=== PATIENT | male | born 1960 | race American Indian/Alaskan Native ===

== ENCOUNTER 2017-02-19 17:43 | Emergency (ER) | payer OTHER ==
[2017-02-19 17:54] VITALS: BP 151/84
[2017-02-19] MEDS ORDERED: FUL-GLO OP ONE (19:47)
[2017-02-19] MEDS ORDERED: TORADOL IM ONE (19:47)
[2017-02-19] MEDS ORDERED: TETRACAINE 0.5% OS STA (19:47)
--- NOTE | 2017-02-19 19:47 | Emergency Department Report ---
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 Denies any vision loss. Patient says he got poked in his left eye. Denies any drainage. Denies any nasal congestion, chest pain or shortness of breath. Pain is burning pain and he did not take anything for pain prior to coming to the emergency room. Tetanus vaccine is up-to-date. He does not wear contact lenses and only wear glasses for reading MD chief complaint: eye pain, eye redness, eye injury -: This evening Onset Description: sudden Location: left eye Place: work If Injury: direct trauma Eye Symptoms: burning, redness, pain, foreign body sensation Severity: moderate Severity scale (0 -10): 6 If Pain, Quality: burning Consistency: constant Context: trauma Associated Symptoms: none Treatments Prior to Arrival: none - Related Data Patient Tetanus UTD: Yes Home Medications Medication Instructions Recorded Confirmed Last Taken Aspirin [Adult Low Dose Aspirin EC] 81 mg PO DAILY 02/19/17 02/19/17 02/19/17 AtorvaSTATin [Lipitor] 40 mg PO DAILY 02/19/17 02/19/17 02/18/17 Lisinopril 5 mg PO DAILY 02/19/17 02/19/17 02/19/17 Metoprolol [Lopressor] 25 mg PO BID 02/19/17 02/19/17 02/19/17 glyBURIDE [Glyburide] 1 tab PO BID 02/19/17 02/19/17 02/19/17 Previous Rx's Medication Instructions Recorded Last Taken Type Gentamicin 0.3% Ophth Soln 2 drops OS Q8H #1 bottle 02/19/17 Unknown Rx Ibuprofen [Motrin] 600 mg PO Q8H PRN #21 tablet 02/19/17 Unknown Rx Allergies Allergy/AdvReac Type Severity Reaction Status Date / Time acetaminophen [From Percocet] Allergy Itching Verified 02/19/17 17:48 metoprolol Allergy Itching Verified 02/19/17 17:48 oxycodone HCl [From Percocet] Allergy Itching Verified 02/19/17 17:48 ED Review of Systems ROS: Stated complaint: LT EYE PAIN Other details as noted in HPI Comment: All other systems reviewed and negative Constitutional: denies: chills, fever Eyes: eye pain. denies: eye discharge, vision change ENT: denies: ear pain, throat pain, congestion Respiratory: no symptoms reported Cardiovascular: denies: chest pain, palpitations, edema, syncope Gastrointestinal: denies: abdominal pain, nausea, vomiting Musculoskeletal: denies: back pain, arthralgia Skin: denies: rash Neurological: denies: headache ED Past Medical Hx - Past Medical History Previous Medical History?: Yes Hx Diabetes: Yes Additional medical history: high cholesterol - Surgical History Past Surgical History?: Yes Hx Open Heart Surgery: Yes - Family History Family history: diabetes, hypertension - Social History Smoking Status: Never Smoker Substance Use Type: Prescribed - Medications Home Medications: Home Medications Medication Instructions Recorded Confirmed Last Taken Type Aspirin [Adult Low Dose Aspirin EC] 81 mg PO DAILY 02/19/17 02/19/17 02/19/17 History AtorvaSTATin [Lipitor] 40 mg PO DAILY 02/19/17 02/19/17 02/18/17 History Gentamicin 0.3% Ophth Soln 2 drops OS Q8H #1 bottle 02/19/17 Unknown Rx Ibuprofen [Motrin] 600 mg PO Q8H PRN #21 tablet 02/19/17 Unknown Rx Lisinopril 5 mg PO DAILY 02/19/17 02/19/17 02/19/17 History Metoprolol [Lopressor] 25 mg PO BID 02/19/17 02/19/17 02/19/17 History glyBURIDE [Glyburide] 1 tab PO BID 02/19/17 02/19/17 02/19/17 History ED Physical Exam - General Limitations: No Limitations General appearance: alert, in no apparent distress - Head Head exam: Present: atraumatic, normocephalic, normal inspection - Eye Eye exam: Present: PERRL, EOMI. Absent: scleral icterus, conjunctival injection , nystagmus, periorbital swelling, periorbital tenderness Pupils: Present: normal accommodation - Expanded Eye Exam Expanded Eyelids: Normal Inspection: Right (Normal bilaterally) Pupils: Regular, Round: Bilateral Sclera/Conjunctival: Normal Inspection: Bilateral, Exudate: Left (tearing) Anterior chamber: Normal Inspection: Bilateral Visual acuity (R) = 20/: 20 (20/20 both eyes) Visual acuity (L) = 20/: 50 With correction: No - ENT ENT exam: Present: normal exam, normal orophraynx, mucous membranes moist, TM's normal bilaterally, normal external ear exam - Neck Neck exam: Present: normal inspection, full ROM. Absent: tenderness, meningismus, lymphadenopathy - Respiratory Respiratory exam: Present: normal lung sounds bilaterally. Absent: respiratory distress, chest wall tenderness - Cardiovascular Cardiovascular Exam: Present: regular rate, normal rhythm, normal heart sounds - Extremities Exam Extremities exam: Present: normal inspection, full ROM, normal capillary refill. Absent: tenderness, pedal edema, joint swelling - Neurological Exam Neurological exam: Present: alert, oriented X3, normal gait, reflexes normal. Absent: motor sensory deficit - Psychiatric Psychiatric exam: Present: normal affect, normal mood - Skin Skin exam: Present: warm, dry, intact, normal color. Absent: rash ED Course Vital Signs 02/19/17 17:50 Temperature 97.8 F Pulse Rate 67 Respiratory 18 Rate Blood Pressure 151/84 O2 Sat by Pulse 100 Oximetry - Reevaluation(s) Reevaluation #1: 02/19/17 20:14 Patient given Toradol 60 mg IM for left eye pain. With some testing - Procedure Description Procedures done: Left eye examine under Restrepo lamp: 2 drops of tetracaine eyedrop instilled and left eye, followed by fluorescein staining and left eye examined under slit-lamp and reveals left corneal abrasion. Patient tetanus shot is up-to-date pain relief with tetracaine eyedrop. He tolerated procedure well. I flushed with normal saline.. ED Medical Decision Making - Medical Decision Making ED course: I discussed the patient that he has abrasion on his left cornea and he'll need to place antibiotic will drops in eyes 3 times a day for 7 days and to follow-up with ophthalmology in 2 days. See procedure note for eye exam. Patient voiced understanding of discharge instruction. He received Toradol 60 mg IM for pain while in emergency room. Discharged home with prescription for gentamicin ophthalmic and Motrin. Critical care attestation.: If time is entered above; I have spent that time in minutes in the direct care of this critically ill patient, excluding procedure time. ED Disposition Clinical Impression: Left eye injury Qualifiers: Encounter type: initial encounter Qualified Code(s): S05.92XA - Unspecified injury of left eye and orbit, initial encounter Corneal abrasion, left Qualifiers: Encounter type: initial encounter Qualified Code(s): S05.02XA - Injury of conjunctiva and corneal abrasion without foreign body, left eye, initial encounter Disposition: DISCHARGED TO HOME OR SELFCARE Is pt being admited?: No Does the pt Need Aspirin: No Condition: Stable Instructions: Corneal Abrasion (ED) Prescriptions: Gentamicin 0.3% Ophth Soln 2 drops OS Q8H #1 bottle Ibuprofen [Motrin] 600 mg PO Q8H PRN #21 tablet PRN Reason: Pain Referrals: LORIE COONEY MD [Staff Physician] - 02/21/17 Forms: Accompanied Note, Work/School Release Form(ED)
== END 2017-02-19 20:44 | disposition home or self-care (01) ==
LOC: ED 17:43
DX: S05.02XA Injury of conjunctiva and corneal abrasion without foreign body, left eye, initial encounter (principal); S05.92XA Unspecified injury of left eye and orbit, initial encounter; E11.9 Type 2 diabetes mellitus without complications; E78.00 Pure hypercholesterolemia, unspecified; X58.XXXA Exposure to other specified factors, initial encounter; Y93.9 Activity, unspecified; Y92.9 Unspecified place or not applicable; Y99.9 Unspecified external cause status
CPT/HCPCS: 96372; 99282; J1885

== ENCOUNTER 2017-11-10 10:02 | Inpatient (IN) | payer OTHER ==
[2017-11-10] MEDS ORDERED: SUBLIMAZE IV ONE (11:09)
[2017-11-10] MEDS ORDERED: ZOFRAN IV ONE (11:09)
--- NOTE | 2017-11-10 11:15 | Emergency Department Report ---
HPI - General Chief Complaint: Abdominal Pain Time Seen by Provider: 11/10/17 11:02 - HPI HPI: Room 25 The patient is a 57-year-old male presenting with chief complaint of abdominal pain. Patient states his epigastric abdominal pain radiating to his back intermittently for the past 4 days. Patient describes pain as sharp in nature. Patient admits to nausea and vomiting. Patient denies diarrhea, dysuria or hematuria. Patient states he may have had a subjective fever yesterday. The patient gives his pain a score of 10/10 Location: Abdomen, back Duration: 4 days Quality: Sharp Severity: 10/10 Modifying factors: [see above] Context: [see above] Mode of transportation: [not driving] ED Past Medical Hx - Past Medical History Hx Diabetes: Yes Additional medical history: high cholesterol - Surgical History Hx Open Heart Surgery: Yes (2011) - Family History Family history: no significant - Social History Smoking Status: Never Smoker Substance Use Type: None - Medications Home Medications: Home Medications Medication Instructions Recorded Confirmed Last Taken Type Aspirin [Adult Low Dose Aspirin EC] 81 mg PO DAILY 02/19/17 02/19/17 02/19/17 History AtorvaSTATin [Lipitor] 40 mg PO DAILY 02/19/17 02/19/17 02/18/17 History Gentamicin 0.3% Ophth Soln 2 drops OS Q8H #1 bottle 02/19/17 Unknown Rx Ibuprofen [Motrin] 600 mg PO Q8H PRN #21 tablet 02/19/17 Unknown Rx Lisinopril 5 mg PO DAILY 02/19/17 02/19/17 02/19/17 History Metoprolol [Lopressor] 25 mg PO BID 02/19/17 02/19/17 02/19/17 History glyBURIDE [Glyburide] 1 tab PO BID 02/19/17 02/19/17 02/19/17 History ED Review of Systems ROS: Stated complaint: ABD/BACK PAIN Other details as noted in HPI Constitutional: fever (subjective) Gastrointestinal: abdominal pain, nausea, vomiting. denies: diarrhea Genitourinary: denies: dysuria, hematuria Musculoskeletal: back pain Physical Exam - Physical Exam Vital Signs: Vital Signs 11/10/17 10:41 Temperature 98.2 F Pulse Rate 77 Respiratory 18 Rate Blood Pressure 140/82 O2 Sat by Pulse 98 Oximetry Physical Exam: GENERAL: The patient is well-developed well-nourished male lying on stretcher moaning in pain with intermittent grimaces. [] HEENT: Normocephalic. Atraumatic. Extraocular motions are intact. Patient has moist mucous membranes. NECK: Supple. Trachea midline CHEST/LUNGS: Clear to auscultation. There is no respiratory distress noted. HEART/CARDIOVASCULAR: Regular. There is no tachycardia. There is no gallop rub or murmur. ABDOMEN: The patient has mild tenderness to palpation in the epigastric region. There is no tenderness to palpation in the rest of the abdomen. Patient has normal bowel sounds. There is no abdominal distention. SKIN: There is no rash. There is no edema. There is no diaphoresis. NEURO: The patient is awake, alert, and oriented. The patient is cooperative. The patient has normal speech MUSCULOSKELETAL: There is slight left CVA tenderness. There is no evidence of acute injury. ED Course Vital Signs 11/10/17 10:41 Temperature 98.2 F Pulse Rate 77 Respiratory 18 Rate Blood Pressure 140/82 O2 Sat by Pulse 98 Oximetry ED Medical Decision Making - Lab Data Result diagrams: 11/10/17 11:08 11/10/17 11:08 Laboratory Tests 11/10/17 11/10/17 11/10/17 11:08 11:08 11:55 WBC 11.3 H RBC 6.68 H Hgb 13.2 Hct 43.0 MCV 64 L MCH 20 L MCHC 31 L RDW 16.0 H Plt Count 198 Lymph % (Auto) 23.8 [place] % (Auto) 8.0 H Eos % (Auto) 1.8 Baso % (Auto) 0.6 Lymph # 2.7 [place] # 0.9 H Eos # 0.2 Baso # 0.1 Seg Neutrophils % 65.8 Seg Neutrophils # 7.4 Sodium 144 Potassium 3.9 Chloride 102.6 Carbon Dioxide 26 Anion Gap 19 BUN 6 L Creatinine 0.7 L Estimated GFR > 60 BUN/Creatinine Ratio 9 Glucose 155 H Calcium 9.5 Total Bilirubin 7.20 H AST 122 H ALT 237 H Alkaline Phosphatase 245 H Total Creatine Kinase 83 CK-MB (CK-2) 1.3 CK-MB (CK-2) Rel Index 1.5 Troponin T < 0.010 Total Protein 7.9 Albumin 4.5 Albumin/Globulin Ratio 1.3 Lipase 564 H Urine Color Rachael Urine Turbidity Clear Urine pH 5.0 Ur Specific [place] 1.009 Urine Protein 30 mg/dl Urine Glucose (UA) Neg Urine Ketones Neg Urine Blood Sm Urine Nitrite Neg Urine Bilirubin Neg Urine Urobilinogen 2.0 Ur Leukocyte Esterase Neg Urine WBC (Auto) 1.0 Urine RBC (Auto) 4.0 - Radiology Data Radiology results: pending (right upper quadrant ultrasound), report reviewed ( CT abdomen and pelvis), image reviewed (CT abdomen and pelvis) CT abdomen and pelvis with contrast: Epigastric pain radiating to back. Following administration of IV contrast transverse images are obtained from the lower chest to the ischium. Coronal and sagittal 2-D reformatted images included. There is a 1.9 cm lobulated mass in the left lower lobe. Sternotomy wires are noted. There is a generalized decreased attenuation of the liver. Numerous gallstones are present extending into the neck of the gallbladder. The CBD is 1 cm in diameter but there is no obvious calculus in the CBD. There is however a small calcification in the jejunum which could represent a small calculus. The gallbladder is not otherwise remarkable. There is marked edema around the thickened pancreas and a small amount of fluid identified in the left colic gutter. The pancreatic duct is nondilated. Small bowel is focally dilated in the left mid abdomen near the pancreatic tail. The unopacified bowel and mesentery is not otherwise remarkable. A normal-appearing appendix is present. The retroperitoneal organs as well as the aorta are unremarkable. Images through the pelvis demonstrate rather prominent vas deferens bilaterally. Impressions: 1. Left lower lobe pulmonary mass. This is not described on chest x-ray in 2012. Additional evaluation needed. 2. Hepatic steatosis. 3. Pancreatitis and cholelithiasis. The dilated CBD and suspicious calculus in the proximal jejunum raise suspicion of a recently passed obstructing CBD calculus. Transcribed By: JOANNE Dictated By: PAVEL GONZALEZ MD Electronically Authenticated By: PAVEL GONZALEZ MD Signed Date/Time: 11/10/171335 DD/ 1321 TD/TT: 11/10/171335 - Differential Diagnosis bowel perforation, renal colic, pancreatitis, aortic dissection Critical care attestation.: If time is entered above; I have spent that time in minutes in the direct care of this critically ill patient, excluding procedure time. ED Disposition Clinical Impression: Acute abdominal pain, Biliary acute pancreatitis, Nausea & vomiting Disposition: 09 OP ADMIT IP TO THIS HOSP Is pt being admited?: Yes Does the pt Need Aspirin: No Condition: Fair Referrals: PRIMARY CARE, [Referring] - 3-5 Days Time of Disposition: 14:01 (hospitalist notified (Dr. Fox))
[2017-11-10 11:26] LABS: Basophils # (Auto) 0.1 K/mm3 (0.0-0.1); Basophils % (Auto) 0.6 % (0.0-1.8); Eosinophils # (Auto) 0.2 K/mm3 (0.0-0.4); Eosinophils % (Auto) 1.8 % (0.0-4.3); Lymphocytes # (Auto) 2.7 K/mm3 (1.2-5.4); Lymphocytes % (Auto) 23.8 % (13.4-35.0); Mean Corpuscular HGB Conc 31 % (32-34); Monocytes # (Auto) 0.9 K/mm3 (0.0-0.8); Platelet Count 198 K/mm3 (140-440); Red Blood Count 6.68 M/mm3 (3.65-5.03)
[2017-11-10 11:27] LABS: Hemoglobin 13.2 gm/dl (11.8-15.2); Mean Corpuscular Hemoglobin 20 pg (28-32); Mean Corpuscular Volume 64 fl (84-94)
[2017-11-10 12:00] LABS: Creatine Kinase MB 1.3 ng/mL (0.0-4.0)
[2017-11-10 12:01] LABS: Alanine Aminotransferase 237 units/L (7-56); Albumin 4.5 g/dL (3.9-5); BUN/Creatinine Ratio 9; Blood Urea Nitrogen 6 mg/dL (9-20); Calcium 9.5 mg/dL (8.4-10.2); Hemolysis Index 3
[2017-11-10 12:11] LABS: Bilirubin,Urine NEG (Negative); Blood,Urine SM (Negative); Color,Urine Amber (Yellow); Nitrite,Urine NEG (Negative)
[2017-11-10 12:30] LABS: Lipase 564 units/L (13-60)
[2017-11-10] MEDS ORDERED: BENTYL IM ONE (12:31)
--- NOTE | 2017-11-10 13:53 | Cat Scan Report ---
CT abdomen and pelvis with contrast: Epigastric pain radiating to back. Following administration of IV contrast transverse images are obtained from the lower chest to the ischium. Coronal and sagittal 2-D reformatted images included. There is a 1.9 cm lobulated mass in the left lower lobe. Sternotomy wires are noted. There is a generalized decreased attenuation of the liver. Numerous gallstones are present extending into the neck of the gallbladder. The CBD is 1 cm in diameter but there is no obvious calculus in the CBD. There is however a small calcification in the jejunum which could represent a small calculus. The gallbladder is not otherwise remarkable. There is marked edema around the thickened pancreas and a small amount of fluid identified in the left colic gutter. The pancreatic duct is nondilated. Small bowel is focally dilated in the left mid abdomen near the pancreatic tail. The unopacified bowel and mesentery is not otherwise remarkable. A normal-appearing appendix is present. The retroperitoneal organs as well as the aorta are unremarkable. Images through the pelvis demonstrate rather prominent vas deferens bilaterally. Impressions: 1. Left lower lobe pulmonary mass. This is not described on chest x-ray in 2012. Additional evaluation needed. 2. Hepatic steatosis. 3. Pancreatitis and cholelithiasis. The dilated CBD and suspicious calculus in the proximal jejunum raise suspicion of a recently passed obstructing CBD calculus.
[2017-11-10] MEDS ORDERED: SUBLIMAZE IV PRN (14:00)
[2017-11-10] MEDS ORDERED: MILK OF MAGNESIA PO PRN (14:08)
[2017-11-10] MEDS ORDERED: ZOFRAN IV PRN (14:08)
[2017-11-10] MEDS ORDERED: DULCOLAX PR PRN (14:08)
[2017-11-10] MEDS ORDERED: PROVENTIL IH PRN (14:08)
[2017-11-10] MEDS ORDERED: MORPHINE IV PRN (14:08)
--- NOTE | 2017-11-10 14:35 | Ultrasound Report ---
Limited abdominal ultrasound: The diameter of the pancreas is slightly thickened. The CBD is not dilated. No obvious fluid accumulation appreciated. The visualized margins of do appear relatively sharp. The liver is not optimally visualized but appears to be grossly normal. The gallbladder contains numerous calculi under a centimeter in size with shadowing. The gallbladder wall was not thickened with questionable minimal pericholecystic fluid identified. The CBD diameter is 6.3 mm. No intraluminal echo density noted. The right kidney is echogenically unremarkable and has a length of 10 cm. The transverse diameter of the proximal abdominal aorta is 1.9 cm. Impressions: 1. Cholelithiasis with suspicion of cholecystitis. 2. Thickened pancreas suspicious for possibly representing pancreatitis.
[2017-11-10] MEDS ORDERED: MORPHINE ONE (14:46)
[2017-11-10] MEDS ORDERED: DILAUDID ONE (14:54)
[2017-11-10] MEDS ORDERED: ZESTRIL PO SCH (15:00)
[2017-11-10] MEDS ORDERED: DILAUDID IV PRN (15:00)
[2017-11-10] MEDS ORDERED: PNEUMOVAX 23 IM ONE (15:20)
--- NOTE | 2017-11-10 16:24 | History and Physical Report ---
History of Present Illness Date of admission: 11/10/17 14:08 Chief complaint: My stomach hurts History of present illness: 57 YO Male with DM, HLD, CAD S/P CABG presents to ED for evaluation. Pt states that he has experienced pain in his abdomen for the past 4 days with worsening symptoms over the past 1 day. Pt states that pain is 10/10, sharp, epigastric in location, associated with nausea and multiple episodes of vomiting, worse with meals, and moving, somewhat relieved with rest and not moving. Pt denies Fever, Diarrhea, BRBPR, Dysuria, hematuria, unintentional weight loss, night sweats, dysphagia, odynophagia, productive cough, or recent ill contacts. Pt seen and evaluated in ED and underwent CT that revealed gallstone pancreatitis. Pt admitted to medical floor, and treated with IVF resuscitation, pain control, and bowel rest. Past History Past Medical History: CAD, diabetes, hyperlipidemia, other Past Surgical History: CABG Social history: , lives with family. denies: smoking, alcohol abuse, prescription drug abuse Family history: no significant family history (reviewed) Medications and Allergies Allergies Allergy/AdvReac Type Severity Reaction Status Date / Time acetaminophen [From Percocet] Allergy Itching Verified 02/19/17 17:48 metoprolol Allergy Itching Verified 02/19/17 17:48 oxycodone HCl [From Percocet] Allergy Itching Verified 02/19/17 17:48 Home Medications Medication Instructions Recorded Confirmed Last Taken Type Aspirin [Adult Low Dose Aspirin EC] 81 mg PO DAILY 02/19/17 02/19/17 02/19/17 History AtorvaSTATin [Lipitor] 40 mg PO DAILY 02/19/17 02/19/17 02/18/17 History Gentamicin 0.3% Ophth Soln 2 drops OS Q8H #1 bottle 02/19/17 Unknown Rx Ibuprofen [Motrin] 600 mg PO Q8H PRN #21 tablet 02/19/17 Unknown Rx Lisinopril 5 mg PO DAILY 02/19/17 02/19/17 02/19/17 History Metoprolol [Lopressor] 25 mg PO BID 02/19/17 02/19/17 02/19/17 History glyBURIDE [Glyburide] 1 tab PO BID 02/19/17 02/19/17 02/19/17 History Active Meds: Active Medications Albuterol (Proventil) 2.5 mg IH Q3HRT PRN PRN Reason: Shortness Of Breath Aspirin (Halfprin Ec) 81 mg PO DAILY YASMIN Atorvastatin Calcium (Lipitor) 40 mg PO QHS YASMIN Bisacodyl (Dulcolax) 10 mg VT QDAY PRN PRN Reason: Constipation unrelieved by [facility] [place] Fentanyl (Sublimaze) 100 mcg IV ONCE PRN PRN Reason: Pain Hydromorphone HCl (Dilaudid) 2 mg IV Q4HR PRN PRN Reason: Severe Pain Sodium Chloride (Nacl 0.45% 1000 Ml) 1,000 mls @ 75 mls/hr IV DIRECT YASMIN Ibuprofen (Motrin) 600 mg PO Q8H PRN PRN Reason: Pain Lisinopril (Zestril) 5 mg PO QDAY YASMIN Magnesium Hydroxide (Milk Of Magnesia) 30 ml PO Q4H PRN PRN Reason: Constipation Metoprolol Tartrate (Lopressor) 25 mg PO BID [facility] Ondansetron HCl (Zofran) 4 mg IV Q8H PRN PRN Reason: N/V unrelieved by Reglan Review of Systems Constitutional: no weight loss, no weight gain, no fever, no chills, no sweats, no night sweats Ears, nose, mouth and throat: no ear pain, no ear discharge, no tinnitis, no decreased hearing, no nose pain, no nasal congestion, no nasal discharge Cardiovascular: no chest pain, no orthopnea, no palpitations, no rapid/ irregular heart beat, no edema, no syncope Respiratory: no cough, no cough with sputum, no excessive sputum, no hemoptysis , no shortness of breath Gastrointestinal: abdominal pain, nausea, vomiting, no hematemesis, no coffee ground emesis, no BRBPR, no melena, no hematochezia Genitourinary Male: no dysuria, no hematuria, no flank pain, no discharge, no urinary frequency Rectal: no pain, no incontinence, no bleeding Musculoskeletal: no neck stiffness, no neck pain, no shooting arm pain, no arm numbness/tingling, no low back pain, no shooting leg pain Integumentary: no rash, no pruritis, no redness, no sores, no wounds Neurological: no head injury, no transient paralysis, no paralysis, no weakness , no parathesias, no numbness, no tingling Psychiatric: no anxiety, no memory loss, no change in sleep habits, no sleep disturbances, no insomnia, no hypersomnia, no change in appetite, no change in libido Endocrine: no cold intolerance, no heat intolerance, no polyphagia, no excessive thirst, no polydipsia, no polyuria, no nocturia, no excessive sweating Hematologic/Lymphatic: no easy bruising, no easy bleeding Allergic/Immunologic: no urticaria, no allergic rhinitis, no wheezing Exam - Constitutional Vitals: Temp Pulse Resp BP Pulse Ox 97.9 F 90 25 H 142/92 100 11/10/17 11:31 11/10/17 13:46 11/10/17 13:46 11/10/17 13:46 11/10/17 11:31 General appearance: Present: mild distress - EENT Eyes: Present: PERRL, scleral icterus ENT: hearing intact, clear oral mucosa - Neck Neck: Present: supple, normal ROM - Respiratory Respiratory effort: normal Respiratory: bilateral: CTA - Cardiovascular Heart Sounds: Present: S1 & S2. Absent: rub, click - Extremities Extremities: pulses symmetrical, No edema Peripheral Pulses: within normal limits - Abdominal General gastrointestinal: Present: soft, tender. Absent: hepatomegaly, splenomegaly, mass, hernia Localized gastrointestinal: tender: epigastric periumbilical, guarding: epigastric periumbilical, rebound: epigastric periumbilical Male genitourinary: Present: normal - Integumentary Integumentary: Present: clear, warm, dry, jaundice - Musculoskeletal Musculoskeletal: gait normal, strength equal bilaterally - Psychiatric Psychiatric: appropriate mood/affect, intact judgment & insight - Neurologic Neurologic: CNII-XII intact, moves all extremities Results - Labs CBC & Chem 7: 11/10/17 11:08 11/10/17 11:08 Labs: Abnormal lab results 11/10/17 11/10/17 11/10/17 Range/Units 10:44 11:08 11:08 WBC 11.3 H (4.5-11.0) K/mm3 RBC 6.68 H (3.65-5.03) M/mm3 MCV 64 L (84-94) fl MCH 20 L (28-32) pg MCHC 31 L (32-34) % RDW 16.0 H (13.2-15.2) % [place] % (Auto) 8.0 H (0.0-7.3) % [place] # 0.9 H (0.0-0.8) K/mm3 BUN 6 L (9-20) mg/dL Creatinine 0.7 L (0.8-1.5) mg/dL Glucose 155 H (75-100) mg/dL POC Glucose 158 H (70-105) Total Bilirubin 7.20 H (0.1-1.2) mg/dL AST 122 H (5-40) units/L ALT 237 H (7-56) units/L Alkaline Phosphatase 245 H (35-129) units/L Lipase 564 H (13-60) units/L Assessment and Plan - Patient Problems (1) Mass of left lung Current Visit: Yes Status: Acute Plan to address problem: Incidental findings on CT. Pulmonary consulted for outpatient F/U and possible biopsy, supplemental oxygen, nebs. (2) Acute gallstone pancreatitis Current Visit: Yes Status: Acute Plan to address problem: IVF resuscitation, bowel rest, MRCP, GI consult, NGT to LWS if persistent nausea and vomiting, serial abdominal exam, pain control, (3) Diabetes Current Visit: Yes Status: Acute Plan to address problem: ADA diet, insulin, accu check (4) HLD (hyperlipidemia) Current Visit: Yes Status: Acute Plan to address problem: continue current care, low sholesterol diet, statin therapy when able to tolerate diet. (5) DVT prophylaxis Current Visit: Yes Status: Acute
[2017-11-10] MEDS: ZOSYN/NS 4.5GM/100ML 4.5 GM/100 ML VIAL IV SCH (17:00)
--- NOTE | 2017-11-10 17:01 | Gastroenterology Consultation ---
History of Present Illness - Reason for Consult Consult date: 11/10/17 Gallstones Requesting physician: JYOTHI SEGURA - History of Present Illness The patient is a 57 yo male admitted with acute pancreatitis. He was seen in the [place] ER for similar problems as far back as August, and was dx with gallstones (and ?elevated LFTs per patient). He tried finding a surgeon that took [employer] and was unsuccessful; he has been dealing with intermittent abdominal pain since August. He did see a GI MD (Leonel or Ni - patient not sure) in the last few weeks, and for unclear reasons, he was offered a colonoscopy as workup of the problem; he had some hemorrhoids and "1-2 polyps." He has no emesis or severe pain on liquids today (compared to Friday, when the current symptoms "flared again." A CT and US confirm gallstones and a dilated (on CT only) CBD without filling defect. There is a small calcified stone in the jejunum, and the patient may have passed a small gallstone as his pain and N/V have improved. He has a WBC of 11, but denies fevers or chills, and has a family hx of gallstones in his mother and sister. He does have a hx of CAD with CABG in 2011, but has no exertional CP or SOB. Past History Past Medical History: CAD, diabetes, hyperlipidemia, other Past Surgical History: CABG Social history: , lives with family. denies: smoking, alcohol abuse, prescription drug abuse Family history: no significant family history (reviewed) Medications and Allergies Allergies Allergy/AdvReac Type Severity Reaction Status Date / Time acetaminophen [From Percocet] Allergy Itching Verified 02/19/17 17:48 metoprolol Allergy Itching Verified 02/19/17 17:48 oxycodone HCl [From Percocet] Allergy Itching Verified 02/19/17 17:48 Home Medications Medication Instructions Recorded Confirmed Last Taken Type Aspirin [Adult Low Dose Aspirin EC] 81 mg PO DAILY 02/19/17 02/19/17 02/19/17 History AtorvaSTATin [Lipitor] 40 mg PO DAILY 02/19/17 02/19/17 02/18/17 History Gentamicin 0.3% Ophth Soln 2 drops OS Q8H #1 bottle 02/19/17 Unknown Rx Ibuprofen [Motrin] 600 mg PO Q8H PRN #21 tablet 02/19/17 Unknown Rx Lisinopril 5 mg PO DAILY 02/19/17 02/19/17 02/19/17 History Metoprolol [Lopressor] 25 mg PO BID 02/19/17 02/19/17 02/19/17 History glyBURIDE [Glyburide] 1 tab PO BID 02/19/17 02/19/17 02/19/17 History Active Meds: Active Medications Albuterol (Proventil) 2.5 mg IH Q3HRT PRN PRN Reason: Shortness Of Breath Aspirin (Halfprin Ec) 81 mg PO DAILY YASMIN Atorvastatin Calcium (Lipitor) 40 mg PO QHS YASMIN Bisacodyl (Dulcolax) 10 mg NM QDAY PRN PRN Reason: Constipation unrelieved by MOM Fentanyl (Sublimaze) 100 mcg IV ONCE PRN PRN Reason: Pain Hydromorphone HCl (Dilaudid) 2 mg IV Q4HR PRN PRN Reason: Severe Pain Sodium Chloride (Nacl 0.45% 1000 Ml) 1,000 mls @ 75 mls/hr IV DIRECT YASMIN Piperacillin Sod/Tazobactam Sod (Zosyn/Ns 4.5gm/100ml) 4.5 gm in 100 mls @ 200 mls/hr IV Q8HR YASMIN PRN Reason: Protocol Ibuprofen (Motrin) 600 mg PO Q8H PRN PRN Reason: Pain Lisinopril (Zestril) 5 mg PO QDAY YASMIN Magnesium Hydroxide (Milk Of Magnesia) 30 ml PO Q4H PRN PRN Reason: Constipation Metoprolol Tartrate (Lopressor) 25 mg PO BID YASMIN Ondansetron HCl (Zofran) 4 mg IV Q8H PRN PRN Reason: N/V unrelieved by Reglan I HAVE REVIEWED AND RECONCILED THE MEDICATONS Review of Systems - Review of Systems All systems: negative (as noted in the HPI.) Exam - Constitutional Vital Signs: Temp Pulse Resp BP Pulse Ox 97.9 F 90 25 H 142/92 100 11/10/17 11:31 11/10/17 13:46 11/10/17 13:46 11/10/17 13:46 11/10/17 11:31 General appearance: no acute distress - EENT Eyes: PERRL, EOM intact, scleral icterus ENT: hearing intact, clear oral mucosa, no thrush - Neck Neck: supple, normal ROM - Respiratory Respiratory effort: normal Respiratory: bilateral: CTA - Cardiovascular Rhythm: regular Heart Sounds: Present: S1 & S2 Extremities: no ischemia, No edema - Gastrointestinal General gastrointestinal: Present: soft, non-tender (No [place] or peritoneal signs), non-distended - Integumentary Integumentary: Present: clear, warm, dry - Neurologic Neurological: alert and oriented x3 - Labs CBC & Chem 7: 11/10/17 11:08 11/10/17 11:08 Lab Results: Laboratory Results - last 24 hr 11/10/17 11/10/17 11/10/17 10:44 11:08 11:08 WBC 11.3 H RBC 6.68 H Hgb 13.2 Hct 43.0 MCV 64 L MCH 20 L MCHC 31 L RDW 16.0 H Plt Count 198 Lymph % (Auto) 23.8 [place] % (Auto) 8.0 H Eos % (Auto) 1.8 Baso % (Auto) 0.6 Lymph # 2.7 [place] # 0.9 H Eos # 0.2 Baso # 0.1 Seg Neutrophils % 65.8 Seg Neutrophils # 7.4 Sodium 144 Potassium 3.9 Chloride 102.6 Carbon Dioxide 26 Anion Gap 19 BUN 6 L Creatinine 0.7 L Estimated GFR > 60 BUN/Creatinine Ratio 9 Glucose 155 H POC Glucose 158 H Calcium 9.5 Total Bilirubin 7.20 H AST 122 H ALT 237 H Alkaline Phosphatase 245 H Total Creatine Kinase 83 CK-MB (CK-2) 1.3 CK-MB (CK-2) Rel Index 1.5 Troponin T < 0.010 Total Protein 7.9 Albumin 4.5 Albumin/Globulin Ratio 1.3 Lipase 564 H Urine Color Urine Turbidity Urine pH Ur Specific [place] Urine Protein Urine Glucose (UA) Urine Ketones Urine Blood Urine Nitrite Urine Bilirubin Urine Urobilinogen Ur Leukocyte Esterase Urine WBC (Auto) Urine RBC (Auto) 11/10/17 11:55 WBC RBC Hgb Hct MCV MCH MCHC RDW Plt Count Lymph % (Auto) [place] % (Auto) Eos % (Auto) Baso % (Auto) Lymph # [place] # Eos # Baso # Seg Neutrophils % Seg Neutrophils # Sodium Potassium Chloride Carbon Dioxide Anion Gap BUN Creatinine Estimated GFR BUN/Creatinine Ratio Glucose POC Glucose Calcium Total Bilirubin AST ALT Alkaline Phosphatase Total Creatine Kinase CK-MB (CK-2) CK-MB (CK-2) Rel Index Troponin T Total Protein Albumin Albumin/Globulin Ratio Lipase Urine Color [place]achael Urine Turbidity Clear Urine pH 5.0 Ur Specific [place] 1.009 Urine Protein 30 mg/dl Urine Glucose (UA) Neg Urine Ketones Neg Urine Blood Sm Urine Nitrite Neg Urine Bilirubin Neg Urine Urobilinogen 2.0 Ur Leukocyte Esterase Neg Urine WBC (Auto) 1.0 Urine RBC (Auto) 4.0 Assessment and Plan - Patient Problems (1) Biliary acute pancreatitis Current Visit: Yes Status: Acute Plan to address problem: - Will start IV abx and make NPO after midnight. - Given dilated CBD, will get MRCP, but I suspect (based on CT and resolution of acute symptoms) that a stone has already passed. - However, patient has recurrent symptoms, and will need cholecystectomy even if ERCP not required. - OK to continue daily ASA for now given hx of CAD. - AM labs ordered. - Empiric ERCP if obstructive cholangitis develops, but patient clinically stable at present.
[2017-11-10] MEDS: LOPRESSOR PO SCH (22:02)
[2017-11-11] MEDS: ZOSYN/NS 4.5GM/100ML 4.5 GM/100 ML VIAL IV SCH ×4 (02:09→22:08)
[2017-11-11] MEDS: NACL 0.45% 1000 ML 1,000 ML IV SCH ×2 (02:10→19:06)
[2017-11-11] MEDS: MOTRIN PO PRN ×2 (02:21→16:12)
[2017-11-11 06:13] LABS: Basophils % (Auto) 0.3 % (0.0-1.8); Eosinophils # (Auto) 0.1 K/mm3 (0.0-0.4); Eosinophils % (Auto) 0.8 % (0.0-4.3); Hematocrit 36.9 % (35.5-45.6); Hemoglobin 11.7 gm/dl (11.8-15.2); Lymphocytes # (Auto) 1.7 K/mm3 (1.2-5.4); Mean Corpuscular HGB Conc 32 % (32-34); Monocytes # (Auto) 0.5 K/mm3 (0.0-0.8); Monocytes % (Auto) 6.7 % (0.0-7.3); Platelet Count 141 K/mm3 (140-440); Red Blood Count 5.74 M/mm3 (3.65-5.03); Red Cell Distribution Width 15.9 % (13.2-15.2)
[2017-11-11 06:21] LABS: Mean Corpuscular Hemoglobin 20 pg (28-32); Mean Corpuscular Volume 64 fl (84-94)
[2017-11-11 06:35] LABS: Alanine Aminotransferase 191 units/L (7-56); Albumin 3.8 g/dL (3.9-5); BUN/Creatinine Ratio 11; Blood Urea Nitrogen 10 mg/dL (9-20); Calcium 8.7 mg/dL (8.4-10.2); Hemolysis Index 2
[2017-11-11 07:30] LABS: Lipase 2606 units/L (13-60)
[2017-11-11] MEDS ORDERED: NON-FORMULARY (Lisinopril 5 MG) PO SCH (10:00)
--- NOTE | 2017-11-11 11:20 | Progress Note ---
Assessment and Plan Assessment and plan: Acute biliary pancreatitis. Continue IV antibiotics. GI following. MRCP today. GI reports empiric ERCP if obstructive cholangitis develops. Left lung mass. Patient with incidental finding on CT scan. Pulmonary consultation for outpatient follow-up and possible biopsy. Diabetes mellitus type 2. Continue ADA diet, insulin and Accu-Cheks. Hyperlipidemia. History Interval history: No new issues overnight Hospitalist Physical - Constitutional Vitals: Temp Pulse Resp BP Pulse Ox 98.6 F 76 16 89/56 97 11/11/17 07:59 11/11/17 07:59 11/11/17 07:59 11/11/17 07:59 11/11/17 08:52 General appearance: Present: no acute distress - EENT Eyes: Present: PERRL, EOM intact ENT: hearing intact, clear oral mucosa, dentition normal - Neck Neck: Present: supple, normal ROM - Respiratory Respiratory effort: normal Respiratory: bilateral: CTA - Cardiovascular Rhythm: regular Heart Sounds: Present: S1 & S2. Absent: gallop, rub - Extremities Extremities: no ischemia, No edema, Full ROM - Abdominal General gastrointestinal: soft, non-tender, non-distended, normal bowel sounds - Integumentary Integumentary: Present: clear, warm, dry - Neurologic Neurologic: CNII-XII intact, moves all extremities Results - Labs CBC & Chem 7: 11/11/17 05:34 11/11/17 05:34 Labs: Laboratory Last Values WBC 7.9 K/mm3 (4.5-11.0) 11/11/17 05:34 RBC 5.74 M/mm3 (3.65-5.03) H 11/11/17 05:34 Hgb 11.7 gm/dl (11.8-15.2) L 11/11/17 05:34 Hct 36.9 % (35.5-45.6) D 11/11/17 05:34 MCV 64 fl (84-94) L 11/11/17 05:34 MCH 20 pg (28-32) L 11/11/17 05:34 MCHC 32 % (32-34) 11/11/17 05:34 RDW 15.9 % (13.2-15.2) H 11/11/17 05:34 Plt Count 141 K/mm3 (140-440) 11/11/17 05:34 Lymph % (Auto) 21.0 % (13.4-35.0) 11/11/17 05:34 [place] % (Auto) 6.7 % (0.0-7.3) 11/11/17 05:34 Eos % (Auto) 0.8 % (0.0-4.3) 11/11/17 05:34 Baso % (Auto) 0.3 % (0.0-1.8) 11/11/17 05:34 Lymph # 1.7 K/mm3 (1.2-5.4) 11/11/17 05:34 [place] # 0.5 K/mm3 (0.0-0.8) 11/11/17 05:34 Eos # 0.1 K/mm3 (0.0-0.4) 11/11/17 05:34 Baso # 0.0 K/mm3 (0.0-0.1) 11/11/17 05:34 Seg Neutrophils % 71.2 % (40.0-70.0) H 11/11/17 05:34 Seg Neutrophils # 5.7 K/mm3 (1.8-7.7) 11/11/17 05:34 Sodium 141 mmol/L (137-145) 11/11/17 05:34 Potassium 3.5 mmol/L (3.6-5.0) L 11/11/17 05:34 Chloride 101.0 mmol/L (98-107) 11/11/17 05:34 Carbon Dioxide 25 mmol/L (22-30) 11/11/17 05:34 Anion Gap 19 mmol/L 11/11/17 05:34 BUN 10 mg/dL (9-20) 11/11/17 05:34 Creatinine 0.9 mg/dL (0.8-1.5) 11/11/17 05:34 Estimated GFR > 60 ml/min 11/11/17 05:34 BUN/Creatinine Ratio 11 % 11/11/17 05:34 Glucose 131 mg/dL (75-100) H 11/11/17 05:34 POC Glucose 158 (70-105) H 11/10/17 10:44 Calcium 8.7 mg/dL (8.4-10.2) 11/11/17 05:34 Total Bilirubin 4.60 mg/dL (0.1-1.2) H 11/11/17 05:34 AST 97 units/L (5-40) H 11/11/17 05:34 ALT 191 units/L (7-56) H 11/11/17 05:34 Alkaline Phosphatase 201 units/L (35-129) H 11/11/17 05:34 Total Creatine Kinase 83 units/L (55-170) 11/10/17 11:08 CK-MB (CK-2) 1.3 ng/mL (0.0-4.0) 11/10/17 11:08 CK-MB (CK-2) Rel Index 1.5 (0-4) 11/10/17 11:08 Troponin T < 0.010 ng/mL (0.00-0.029) 11/10/17 11:08 Total Protein 6.6 g/dL (6.3-8.2) 11/11/17 05:34 Albumin 3.8 g/dL (3.9-5) L 11/11/17 05:34 Albumin/Globulin Ratio 1.4 % 11/11/17 05:34 Lipase 2606 units/L (13-60) H 11/11/17 05:34 Urine Color Rachael (Yellow) 11/10/17 11:55 Urine Turbidity Clear (Clear) 11/10/17 11:55 Urine pH 5.0 (5.0-7.0) 11/10/17 11:55 Ur Specific [place] 1.009 (1.003-1.030) 11/10/17 11:55 Urine Protein 30 mg/dl mg/dL (Negative) 11/10/17 11:55 Urine Glucose (UA) Neg mg/dL (Negative) 11/10/17 11:55 Urine Ketones Neg mg/dL (Negative) 11/10/17 11:55 Urine Blood Sm (Negative) 11/10/17 11:55 Urine Nitrite Neg (Negative) 11/10/17 11:55 Urine Bilirubin Neg (Negative) 11/10/17 11:55 Urine Urobilinogen 2.0 mg/dL (<2.0) 11/10/17 11:55 Ur Leukocyte Esterase Neg (Negative) 11/10/17 11:55 Urine WBC (Auto) 1.0 /HPF (0.0-6.0) 11/10/17 11:55 Urine RBC (Auto) 4.0 /HPF (0.0-6.0) 11/10/17 11:55
[2017-11-11] MEDS: HALFPRIN EC PO SCH (11:39)
[2017-11-11] MEDS: ZESTRIL PO SCH (11:40)
[2017-11-11] MEDS: LOPRESSOR PO SCH ×2 (11:40→22:10)
[2017-11-11] MEDS: BENADRYL IV PRN (11:44)
--- NOTE | 2017-11-11 12:29 | Magnetic Resonance Report ---
MRI ABDOMEN WITHOUT CONTRAST WITH MRCP INDICATION: Gallstone pancreatitis. COMPARISON: Ultrasound and CT performed yesterday. FINDINGS: Noncontrast multiplanar and multisequence MRI of the abdomen again demonstrates minimal perihepatic ascites. Numerous small stones noted dependently in the gallbladder. Pancreatic/peripancreatic edema/fluid stranding also extends to the nicolás hepatis and perinephric on the right. No abnormal pancreatic duct dilation. Left hepatic lobe tip again noted in the left upper quadrant. No MRI signal confirmation of fatty liver however. Liver, spleen, adrenals, aorta, IVC and kidneys otherwise within normal limits. Nonobstructive bowel with grossly normal bowel, marrow and muscle signal. Susceptibility artifact from sternotomy wires. A known 1.8 cm left lower lobe mass may also be noted, axial image 9, series 4. Nonspecific distal esophageal wall prominence/thickening, not excluded for gastroesophageal reflux and/or hiatal hernia, amongst others. MRCP images demonstrate no abnormal biliary dilatation with CBD caliber of approximately 5-6 mm at the nicolás hepatis, tapering normally toward the ampulla. No convincing intrinsic filling defects. No abnormal pancreatic duct dilation. CONCLUSION: Acute pancreatitis noted in this patient with various other findings as a left lower lung mass/neoplasm, post CABG changes, cholelithiasis and minimal ascites, as described. Thank you for the opportunity to participate in this patient's care.
--- NOTE | 2017-11-11 14:27 | Gastroenterology Progress Note ---
Assessment and Plan GI: h/o gallstones presented now w/ increase LFT's and abdominal pain - noted increase lipase with abdominal symptoms - MRCP w/o signs biliary stones - possible passed stone, follow lft's - npo, follow labs - start po in am based on progress - surgery consult for possible lap debbie - will follow Subjective Date of service: 11/11/17 Interval history: - reports mid abdominal pain described as 'empty stomach pain' Objective - Constitutional Vitals: Temp Pulse Resp BP Pulse Ox 98.0 F 71 20 118/72 98 11/11/17 11:33 11/11/17 11:33 11/11/17 11:33 11/11/17 11:40 11/11/17 11:33 General appearance: no acute distress - Respiratory Respiratory: bilateral: CTA - Cardiovascular Rhythm: regular Heart Sounds: Present: S1 & S2 - Gastrointestinal General gastrointestinal: Present: soft, non-tender - Labs CBC & Chem 7: 11/11/17 05:34 11/11/17 05:34 Labs: Laboratory Results - last 24 hr 11/11/17 11/11/17 05:34 05:34 WBC 7.9 RBC 5.74 H Hgb 11.7 L Hct 36.9 D MCV 64 L MCH 20 L MCHC 32 RDW 15.9 H Plt Count 141 Lymph % (Auto) 21.0 [place] % (Auto) 6.7 Eos % (Auto) 0.8 Baso % (Auto) 0.3 Lymph # 1.7 [place] # 0.5 Eos # 0.1 Baso # 0.0 Seg Neutrophils % 71.2 H Seg Neutrophils # 5.7 Sodium 141 Potassium 3.5 L Chloride 101.0 Carbon Dioxide 25 Anion Gap 19 BUN 10 Creatinine 0.9 Estimated GFR > 60 BUN/Creatinine Ratio 11 Glucose 131 H Calcium 8.7 Total Bilirubin 4.60 H AST 97 H ALT 191 H Alkaline Phosphatase 201 H Total Protein 6.6 Albumin 3.8 L Albumin/Globulin Ratio 1.4 Lipase 2606 H
--- NOTE | 2017-11-11 14:39 | Consultation ---
History of Present Illness Consult date: 11/11/17 Requesting physician: TAISHA SALGADO Reason for consult: lung mass History of present illness: 57 yo admitted with abd pain, gallstone pancreatitis, nausea. Denies SOB, chest pain, fevers, chills, cough, sputum, hemoptysis, weight loss. States he is hungry. Active Medications Albuterol (Proventil) 2.5 mg IH Q3HRT PRN PRN Reason: Shortness Of Breath Aspirin (Halfprin Ec) 81 mg PO DAILY [facility] Last Admin: 11/11/17 11:39 Dose: 81 mg Atorvastatin Calcium (Lipitor) 40 mg PO QHS YASMIN Bisacodyl (Dulcolax) 10 mg [place] QDAY PRN PRN Reason: Constipation unrelieved by MOM Diphenhydramine HCl (Benadryl) 25 mg IV Q6H PRN PRN Reason: Itching Last Admin: 11/11/17 11:44 Dose: 25 mg Fentanyl (Sublimaze) 100 mcg IV ONCE PRN PRN Reason: Pain Hydromorphone HCl (Dilaudid) 2 mg IV Q4HR PRN PRN Reason: Severe Pain Sodium Chloride (Nacl 0.45% 1000 Ml) 1,000 mls @ 75 mls/hr IV DIRECT [facility] Last Admin: 11/11/17 02:10 Dose: 75 mls/hr Piperacillin Sod/Tazobactam Sod (Zosyn/Ns 4.5gm/100ml) 4.5 gm in 100 mls @ 200 mls/hr IV Q8HR YASMIN PRN Reason: Protocol Last Admin: 11/11/17 13:24 Dose: 200 mls/hr Ibuprofen (Motrin) 600 mg PO Q8H PRN PRN Reason: Pain Last Admin: 11/11/17 02:21 Dose: 600 mg Lisinopril (Zestril) 5 mg PO QDAY [facility] Last Admin: 11/11/17 11:40 Dose: 5 mg Magnesium Hydroxide (Milk Of Magnesia) 30 ml PO Q4H PRN PRN Reason: Constipation Metoprolol Tartrate (Lopressor) 25 mg PO BID [facility] Last Admin: 11/11/17 11:40 Dose: 25 mg Ondansetron HCl (Zofran) 4 mg IV Q8H PRN PRN Reason: N/V unrelieved by Reglan Past History Past Medical History: CAD, diabetes, hyperlipidemia, other Past Surgical History: CABG Social history: , lives with family. denies: smoking, alcohol abuse, prescription drug abuse Family history: no significant family history (reviewed) Medications and Allergies Allergies Allergy/AdvReac Type Severity Reaction Status Date / Time acetaminophen [From Percocet] Allergy Itching Verified 02/19/17 17:48 metoprolol Allergy Itching Verified 02/19/17 17:48 oxycodone HCl [From Percocet] Allergy Itching Verified 02/19/17 17:48 Home Medications Medication Instructions Recorded Confirmed Last Taken Type Aspirin [Adult Low Dose Aspirin EC] 81 mg PO DAILY 02/19/17 02/19/17 02/19/17 History AtorvaSTATin [Lipitor] 40 mg PO DAILY 02/19/17 02/19/17 02/18/17 History Gentamicin 0.3% Ophth Soln 2 drops OS Q8H #1 bottle 02/19/17 Unknown Rx Ibuprofen [Motrin] 600 mg PO Q8H PRN #21 tablet 02/19/17 Unknown Rx Lisinopril 5 mg PO DAILY 02/19/17 02/19/17 02/19/17 History Metoprolol [Lopressor] 25 mg PO BID 02/19/17 02/19/17 02/19/17 History glyBURIDE [Glyburide] 1 tab PO BID 02/19/17 02/19/17 02/19/17 History Active Meds: Active Medications Albuterol (Proventil) 2.5 mg IH Q3HRT PRN PRN Reason: Shortness Of Breath Aspirin (Halfprin Ec) 81 mg PO DAILY YASMIN Last Admin: 11/11/17 11:39 Dose: 81 mg Atorvastatin Calcium (Lipitor) 40 mg PO QHS YASMIN Bisacodyl (Dulcolax) 10 mg NV QDAY PRN PRN Reason: Constipation unrelieved by MOM Diphenhydramine HCl (Benadryl) 25 mg IV Q6H PRN PRN Reason: Itching Last Admin: 11/11/17 11:44 Dose: 25 mg Fentanyl (Sublimaze) 100 mcg IV ONCE PRN PRN Reason: Pain Hydromorphone HCl (Dilaudid) 2 mg IV Q4HR PRN PRN Reason: Severe Pain Sodium Chloride (Nacl 0.45% 1000 Ml) 1,000 mls @ 75 mls/hr IV DIRECT [facility] Last Admin: 11/11/17 02:10 Dose: 75 mls/hr Piperacillin Sod/Tazobactam Sod (Zosyn/Ns 4.5gm/100ml) 4.5 gm in 100 mls @ 200 mls/hr IV Q8HR YASMIN PRN Reason: Protocol Last Admin: 11/11/17 13:24 Dose: 200 mls/hr Ibuprofen (Motrin) 600 mg PO Q8H PRN PRN Reason: Pain Last Admin: 11/11/17 02:21 Dose: 600 mg Lisinopril (Zestril) 5 mg PO QDAY [facility] Last Admin: 11/11/17 11:40 Dose: 5 mg Magnesium Hydroxide (Milk Of Magnesia) 30 ml PO Q4H PRN PRN Reason: Constipation Metoprolol Tartrate (Lopressor) 25 mg PO BID [facility] Last Admin: 11/11/17 11:40 Dose: 25 mg Ondansetron HCl (Zofran) 4 mg IV Q8H PRN PRN Reason: N/V unrelieved by Reglan Review of Systems All systems: negative Physical Examination Vital signs: Vital Signs Temp Pulse Resp BP Pulse Ox 98.2 F 77 18 140/82 98 11/10/17 10:41 11/10/17 10:41 11/10/17 10:41 11/10/17 10:41 11/10/17 10:41 General appearance: no acute distress, alert Eyes: non-icteric ENT: oropharynx moist Neck: supple Effort: normal Ascultation: Bilateral: clear Cardiovascular: regular rate and rhythm Gastrointestinal: normoactive bowel sounds, soft, non-tender, non-distended Integumentary: normal Extremities: no cyanosis, no edema, pink and warm normal mental status, non-focal exam, pupils equal and round, CN II-XII normal mood appropriate, affect normal Results - Laboratory Findings CBC and BMP: 11/11/17 05:34 11/11/17 05:34 Abnormal lab findings: Abnormal Labs 11/10/17 11/10/17 11/10/17 10:44 11:08 11:08 WBC 11.3 H RBC 6.68 H Hgb MCV 64 L MCH 20 L MCHC 31 L RDW 16.0 H [place] % (Auto) 8.0 H [place] # 0.9 H Seg Neutrophils % Potassium BUN 6 L Creatinine 0.7 L Glucose 155 H POC Glucose 158 H Total Bilirubin 7.20 H AST 122 H ALT 237 H Alkaline Phosphatase 245 H Albumin Lipase 564 H 11/11/17 11/11/17 05:34 05:34 WBC RBC 5.74 H Hgb 11.7 L MCV 64 L MCH 20 L MCHC RDW 15.9 H [place] % (Auto) [place] # Seg Neutrophils % 71.2 H Potassium 3.5 L BUN Creatinine Glucose 131 H POC Glucose Total Bilirubin 4.60 H AST 97 H ALT 191 H Alkaline Phosphatase 201 H Albumin 3.8 L Lipase 2606 H - Diagnostic Findings Additional studies: reviewed ct a/p Assessment and Plan Imp: 1. Lung mass/nodule LLL 2. Gallstone acute pancreatitis 3. CAD s/p CABG Rec: 1. The size and location of the LLL lesion will make if difficult to biopsy as needle biopsy will result in PTX, regular bronch likely to be non-diagnostic; options include electronic navigational bronch +/- PET as outpatient; will go ahead and get a dedicated CT chest with contrast while here to ensure no other disease in the chest 2. Other issues per GI Plan of care reviewed with patient/family, they understand/agree Thanks for the consult. Will follow.
[2017-11-12 06:12] LABS: Basophils % (Auto) 0.3 % (0.0-1.8); Eosinophils # (Auto) 0.1 K/mm3 (0.0-0.4); Eosinophils % (Auto) 1.1 % (0.0-4.3); Hematocrit 35.6 % (35.5-45.6); Hemoglobin 11.1 gm/dl (11.8-15.2); Lymphocytes # (Auto) 1.2 K/mm3 (1.2-5.4); Mean Corpuscular HGB Conc 31 % (32-34); Monocytes # (Auto) 0.5 K/mm3 (0.0-0.8); Monocytes % (Auto) 5.7 % (0.0-7.3); Platelet Count 139 K/mm3 (140-440); Red Blood Count 5.56 M/mm3 (3.65-5.03); Red Cell Distribution Width 15.9 % (13.2-15.2)
[2017-11-12 06:39] LABS: BUN/Creatinine Ratio 17; Blood Urea Nitrogen 12 mg/dL (9-20); Calcium 8.7 mg/dL (8.4-10.2); Hemolysis Index 34
[2017-11-12 06:46] LABS: Mean Corpuscular Hemoglobin 20 pg (28-32); Mean Corpuscular Volume 64 fl (84-94)
[2017-11-12] MEDS: ZOSYN/NS 4.5GM/100ML 4.5 GM/100 ML VIAL IV SCH ×3 (06:56→22:40)
[2017-11-12] MEDS: NACL 0.45% 1000 ML 1,000 ML IV SCH ×2 (06:56→22:41)
[2017-11-12] MEDS ORDERED: NACL ONE (07:49)
[2017-11-12 07:58] LABS: Albumin 3.8 g/dL (3.9-5); Bilirubin,Direct 1.3 mg/dL (0-0.2)
--- NOTE | 2017-11-12 08:51 | Cat Scan Report ---
CT CHEST WITH CONTRAST: HISTORY: Lung mass, left lower lobe. COMPARISON: CT abdomen and pelvis dated 11/10/17. No previous CT chest at this facility. TECHNIQUE: Helical CT in 1.25mm intervals following IV contrast. Sagittal and coronal reformatted images. FINDINGS: Thyroid gland: Normal. Tracheobronchial tree: Normal. Esophagus: Normal. Heart: Normal size. Moderate coronary artery calcifications. Evidence for previous CABG. Pericardium: Normal. Mediastinum: Normal. Lung Jung: Well-circumscribed mass in the left lower lobe measures 1.7 x 1.3 cm. No additional lung mass or nodule is identified. Mild segmental atelectasis is noted in both lower lobes. No underlying parenchymal lung disease is suspected. Pleural Spaces: Normal. Musculoskeletal: Mild thoracic spondylosis. No fracture or suspicious bony lesion. IMPRESSION: Solitary 1.7 x 1.3 cm mass in the left lower lobe. No additional lung mass or thoracic adenopathy. Mild segmental atelectasis in both lower lobes. CABG changes.
--- NOTE | 2017-11-12 10:07 | Progress Note ---
Assessment and Plan Assessment and plan: Acute biliary pancreatitis. Patient still with increased lipase. Continue IV antibiotics. GI following. MRCP w/o signs biliary stones. Patient most likely passed stone. Surgery consult for possible lap debbie. Left lung mass. CT scan of the chest with contrast for further evaluation. Pulmonary following. Diabetes mellitus type 2. Continue ADA diet, insulin and Accu-Cheks. Hyperlipidemia. History Interval history: No new issues overnight Hospitalist Physical - Constitutional Vitals: Temp Pulse Resp BP Pulse Ox 98.5 F 103 H 20 106/59 98 11/12/17 08:28 11/12/17 08:28 11/12/17 08:28 11/12/17 08:28 11/12/17 08:28 General appearance: Present: no acute distress - EENT Eyes: Present: PERRL, EOM intact ENT: hearing intact, clear oral mucosa, dentition normal - Neck Neck: Present: supple, normal ROM - Respiratory Respiratory effort: normal Respiratory: bilateral: CTA - Cardiovascular Rhythm: regular Heart Sounds: Present: S1 & S2. Absent: gallop, rub - Extremities Extremities: no ischemia, No edema, Full ROM - Abdominal General gastrointestinal: soft, non-tender, non-distended, normal bowel sounds - Integumentary Integumentary: Present: clear, warm, dry - Neurologic Neurologic: CNII-XII intact, moves all extremities Results - Labs CBC & Chem 7: 11/12/17 05:31 11/12/17 05:31 Labs: Laboratory Last Values WBC 9.6 K/mm3 (4.5-11.0) 11/12/17 05:31 RBC 5.56 M/mm3 (3.65-5.03) H 11/12/17 05:31 Hgb 11.1 gm/dl (11.8-15.2) L 11/12/17 05:31 Hct 35.6 % (35.5-45.6) 11/12/17 05:31 MCV 64 fl (84-94) L 11/12/17 05:31 MCH 20 pg (28-32) L 11/12/17 05:31 MCHC 31 % (32-34) L 11/12/17 05:31 RDW 15.9 % (13.2-15.2) H 11/12/17 05:31 Plt Count 139 K/mm3 (140-440) L 11/12/17 05:31 Lymph % (Auto) 13.0 % (13.4-35.0) L 11/12/17 05:31 [place] % (Auto) 5.7 % (0.0-7.3) 11/12/17 05:31 Eos % (Auto) 1.1 % (0.0-4.3) 11/12/17 05:31 Baso % (Auto) 0.3 % (0.0-1.8) 11/12/17 05:31 Lymph # 1.2 K/mm3 (1.2-5.4) 11/12/17 05:31 [place] # 0.5 K/mm3 (0.0-0.8) 11/12/17 05:31 Eos # 0.1 K/mm3 (0.0-0.4) 11/12/17 05:31 Baso # 0.0 K/mm3 (0.0-0.1) 11/12/17 05:31 Seg Neutrophils % 79.9 % (40.0-70.0) H 11/12/17 05:31 Seg Neutrophils # 7.6 K/mm3 (1.8-7.7) 11/12/17 05:31 Sodium 143 mmol/L (137-145) 11/12/17 05:31 Potassium 3.8 mmol/L (3.6-5.0) 11/12/17 05:31 Chloride 102.3 mmol/L (98-107) 11/12/17 05:31 Carbon Dioxide 20 mmol/L (22-30) L 11/12/17 05:31 Anion Gap 25 mmol/L 11/12/17 05:31 BUN 12 mg/dL (9-20) 11/12/17 05:31 Creatinine 0.7 mg/dL (0.8-1.5) L 11/12/17 05:31 Estimated GFR > 60 ml/min 11/12/17 05:31 BUN/Creatinine Ratio 17 % 11/12/17 05:31 Glucose 74 mg/dL (75-100) L 11/12/17 05:31 POC Glucose 158 (70-105) H 11/10/17 10:44 Calcium 8.7 mg/dL (8.4-10.2) 11/12/17 05:31 Total Bilirubin 3.70 mg/dL (0.1-1.2) H 11/12/17 05:36 Direct Bilirubin 1.3 mg/dL (0-0.2) H 11/12/17 05:36 Indirect Bilirubin 2.4 mg/dL 11/12/17 05:36 AST 92 units/L (5-40) H 11/12/17 05:36 ALT 155 units/L (7-56) H 11/12/17 05:36 Alkaline Phosphatase 217 units/L (35-129) H 11/12/17 05:36 Total Creatine Kinase 83 units/L (55-170) 11/10/17 11:08 CK-MB (CK-2) 1.3 ng/mL (0.0-4.0) 11/10/17 11:08 CK-MB (CK-2) Rel Index 1.5 (0-4) 11/10/17 11:08 Troponin T < 0.010 ng/mL (0.00-0.029) 11/10/17 11:08 Total Protein 6.8 g/dL (6.3-8.2) 11/12/17 05:36 Albumin 3.8 g/dL (3.9-5) L 11/12/17 05:36 Albumin/Globulin Ratio 1.3 % 11/12/17 05:36 Lipase 981 units/L (13-60) H 11/12/17 05:36 Urine Color Rachael (Yellow) 11/10/17 11:55 Urine Turbidity Clear (Clear) 11/10/17 11:55 Urine pH 5.0 (5.0-7.0) 11/10/17 11:55 Ur Specific [place] 1.009 (1.003-1.030) 11/10/17 11:55 Urine Protein 30 mg/dl mg/dL (Negative) 11/10/17 11:55 Urine Glucose (UA) Neg mg/dL (Negative) 11/10/17 11:55 Urine Ketones Neg mg/dL (Negative) 11/10/17 11:55 Urine Blood Sm (Negative) 11/10/17 11:55 Urine Nitrite Neg (Negative) 11/10/17 11:55 Urine Bilirubin Neg (Negative) 11/10/17 11:55 Urine Urobilinogen 2.0 mg/dL (<2.0) 11/10/17 11:55 Ur Leukocyte Esterase Neg (Negative) 11/10/17 11:55 Urine WBC (Auto) 1.0 /HPF (0.0-6.0) 11/10/17 11:55 Urine RBC (Auto) 4.0 /HPF (0.0-6.0) 11/10/17 11:55
--- NOTE | 2017-11-12 10:11 | Gastroenterology Progress Note ---
Assessment and Plan 1.gallstone pancreatitis -afebrile -WBC trended down to now 9.6 (WNL) -lipase 981-trending down -AST 92, ALT 155, Alk phos 217, T.connor 3.7 -h/o gallstones presented now w/ increase LFT's and abdominal pain -MRCP w/o signs biliary stones- possible passed stone -surgery consult pending for possible lap debbie -clinically, abd pain is improving and no episodes of N/V -will start on clear liquids -continue supportive care -will follow Subjective Date of service: 11/12/17 Principal diagnosis: gallstone pancreatitis Interval history: Patient resting in bed. No acute events overnight or this am. Denies N/V or abd pain. Reports being hungry and is requesting a diet. Objective - Constitutional Vitals: Temp Pulse Resp BP Pulse Ox 98.5 F 103 H 20 106/59 98 11/12/17 08:28 11/12/17 08:28 11/12/17 08:28 11/12/17 08:28 11/12/17 08:28 General appearance: no acute distress - EENT Eyes: PERRL, EOM intact ENT: hearing intact - Respiratory Respiratory: bilateral: CTA - Cardiovascular Rhythm: other (tachycardia) Heart Sounds: Present: S1 & S2 - Extremities Extremities: No edema - Gastrointestinal General gastrointestinal: Present: soft, tender (mild TTP in epigastric area), non-distended, normal bowel sounds - Integumentary Integumentary: Present: warm, dry - Neurologic Neurological: alert and oriented x3 - Labs CBC & Chem 7: 11/12/17 05:31 11/12/17 05:31 Labs: Laboratory Results - last 24 hr 11/12/17 11/12/17 11/12/17 05:31 05:31 05:36 WBC 9.6 RBC 5.56 H Hgb 11.1 L Hct 35.6 MCV 64 L MCH 20 L MCHC 31 L RDW 15.9 H Plt Count 139 L Lymph % (Auto) 13.0 L [place] % (Auto) 5.7 Eos % (Auto) 1.1 Baso % (Auto) 0.3 Lymph # 1.2 [place] # 0.5 Eos # 0.1 Baso # 0.0 Seg Neutrophils % 79.9 H Seg Neutrophils # 7.6 Sodium 143 Potassium 3.8 Chloride 102.3 Carbon Dioxide 20 L Anion Gap 25 BUN 12 Creatinine 0.7 L Estimated GFR > 60 BUN/Creatinine Ratio 17 Glucose 74 L Calcium 8.7 Total Bilirubin 3.70 H Direct Bilirubin 1.3 H Indirect Bilirubin 2.4 AST 92 H ALT 155 H Alkaline Phosphatase 217 H Total Protein 6.8 Albumin 3.8 L Albumin/Globulin Ratio 1.3 Lipase 11/12/17 05:36 WBC RBC Hgb Hct MCV MCH MCHC RDW Plt Count Lymph % (Auto) [place] % (Auto) Eos % (Auto) Baso % (Auto) Lymph # [place] # Eos # Baso # Seg Neutrophils % Seg Neutrophils # Sodium Potassium Chloride Carbon Dioxide Anion Gap BUN Creatinine Estimated GFR BUN/Creatinine Ratio Glucose Calcium Total Bilirubin Direct Bilirubin Indirect Bilirubin AST ALT Alkaline Phosphatase Total Protein Albumin Albumin/Globulin Ratio Lipase 981 H
[2017-11-12] MEDS: ZESTRIL PO SCH (11:05)
[2017-11-12] MEDS: HALFPRIN EC PO SCH (11:05)
[2017-11-12] MEDS: LOPRESSOR PO SCH ×2 (11:05→22:37)
--- NOTE | 2017-11-12 13:51 | Progress Note ---
Assessment and Plan Imp: 1. Lung mass/nodule LLL 2. Gallstone acute pancreatitis 3. CAD s/p CABG Rec: 1. CT chest shows isolated LLL lesion; recommend Ct guided biopsy (will likely result in PTX but will just have to deal with this accordingly) +/- PET, both of which can be done as outpatient once GI issues resolved Plan of care reviewed with patient/family, they understand/agree Subjective Date of service: 11/12/17 Principal diagnosis: gallstone pancreatitis Interval history: No events. Awake, alert. Still with abd/back pain, nausea without vomiting. No new complaints. Active Medications Albuterol (Proventil) 2.5 mg IH Q3HRT PRN PRN Reason: Shortness Of Breath Aspirin (Halfprin Ec) 81 mg PO DAILY [facility] Last Admin: 11/12/17 11:05 Dose: 81 mg Atorvastatin Calcium (Lipitor) 40 mg PO QHS [facility] Last Admin: 11/11/17 22:09 Dose: Not Given Bisacodyl (Dulcolax) 10 mg AK QDAY PRN PRN Reason: Constipation unrelieved by MOM Diphenhydramine HCl (Benadryl) 25 mg IV Q6H PRN PRN Reason: Itching Last Admin: 11/11/17 11:44 Dose: 25 mg Fentanyl (Sublimaze) 100 mcg IV ONCE PRN PRN Reason: Pain Hydromorphone HCl (Dilaudid) 2 mg IV Q4HR PRN PRN Reason: Severe Pain Sodium Chloride (Nacl 0.45% 1000 Ml) 1,000 mls @ 75 mls/hr IV DIRECT [facility] Last Admin: 11/12/17 06:56 Dose: 75 mls/hr Piperacillin Sod/Tazobactam Sod (Zosyn/Ns 4.5gm/100ml) 4.5 gm in 100 mls @ 200 mls/hr IV Q8HR YASMIN PRN Reason: Protocol Last Admin: 11/12/17 06:56 Dose: 200 mls/hr Ibuprofen (Motrin) 600 mg PO Q8H PRN PRN Reason: Pain Last Admin: 11/11/17 16:12 Dose: 600 mg Lisinopril (Zestril) 5 mg PO QDAY [facility] Last Admin: 11/12/17 11:05 Dose: 5 mg Magnesium Hydroxide (Milk Of Magnesia) 30 ml PO Q4H PRN PRN Reason: Constipation Metoprolol Tartrate (Lopressor) 25 mg PO BID YASMIN Last Admin: 11/12/17 11:05 Dose: 25 mg Ondansetron HCl (Zofran) 4 mg IV Q8H PRN PRN Reason: N/V unrelieved by Lauren Objective Vital Signs - 12hr 11/12/17 11/12/17 11/12/17 04:07 08:28 11:05 Temperature 98.6 F 98.5 F Pulse Rate 103 H 103 H Respiratory 18 20 Rate Blood Pressure 112/76 106/59 129/75 O2 Sat by Pulse 96 98 Oximetry 11/12/17 11:43 Temperature 99.0 F Pulse Rate 86 Respiratory 20 Rate Blood Pressure 130/72 O2 Sat by Pulse 98 Oximetry Constitutional: no acute distress, alert Eyes: non-icteric ENT: oropharynx moist Neck: supple Effort: normal Ascultation: Bilateral: clear Cardiovascular: regular rate and rhythm Gastrointestinal: normoactive bowel sounds, soft, non-tender, non-distended Integumentary: normal Extremities: no cyanosis, no edema, pink and warm Neurologic: normal mental status, non-focal exam, pupils equal and round, CN II- XII normal Psychiatric: mood appropriate, affect normal CBC and BMP: 11/12/17 05:31 11/12/17 05:31 Abnormal lab findings: Abnormal Labs 11/10/17 11/10/17 11/10/17 10:44 11:08 11:08 WBC 11.3 H RBC 6.68 H Hgb MCV 64 L MCH 20 L MCHC 31 L RDW 16.0 H Plt Count Lymph % (Auto) [place] % (Auto) 8.0 H [place] # 0.9 H Seg Neutrophils % Potassium Carbon Dioxide BUN 6 L Creatinine 0.7 L Glucose 155 H POC Glucose 158 H Total Bilirubin 7.20 H Direct Bilirubin AST 122 H ALT 237 H Alkaline Phosphatase 245 H Albumin Lipase 564 H 11/11/17 11/11/17 11/12/17 05:34 05:34 05:31 WBC RBC 5.74 H 5.56 H Hgb 11.7 L 11.1 L MCV 64 L 64 L MCH 20 L 20 L MCHC 31 L RDW 15.9 H 15.9 H Plt Count 139 L Lymph % (Auto) 13.0 L [place] % (Auto) [place] # Seg Neutrophils % 71.2 H 79.9 H Potassium 3.5 L Carbon Dioxide BUN Creatinine Glucose 131 H POC Glucose Total Bilirubin 4.60 H Direct Bilirubin AST 97 H ALT 191 H Alkaline Phosphatase 201 H Albumin 3.8 L Lipase 2606 H 11/12/17 11/12/17 11/12/17 05:31 05:36 05:36 WBC RBC Hgb MCV MCH MCHC RDW Plt Count Lymph % (Auto) [place] % (Auto) [place] # Seg Neutrophils % Potassium Carbon Dioxide 20 L BUN Creatinine 0.7 L Glucose 74 L POC Glucose Total Bilirubin 3.70 H Direct Bilirubin 1.3 H AST 92 H ALT 155 H Alkaline Phosphatase 217 H Albumin 3.8 L Lipase 981 H Chest x-ray: report reviewed, image reviewed CT scan - chest: report reviewed, image reviewed
[2017-11-12] MEDS: BENADRYL IV PRN (14:01)
[2017-11-12] MEDS: MOTRIN PO PRN (22:39)
[2017-11-13] MEDS: ZOSYN/NS 4.5GM/100ML 4.5 GM/100 ML VIAL IV SCH ×3 (05:38→22:29)
[2017-11-13 06:44] LABS: Basophils % (Auto) 0.5 % (0.0-1.8); Eosinophils # (Auto) 0.3 K/mm3 (0.0-0.4); Eosinophils % (Auto) 3.6 % (0.0-4.3); Hematocrit 34.8 % (35.5-45.6); Hemoglobin 11.1 gm/dl (11.8-15.2); Lymphocytes # (Auto) 1.8 K/mm3 (1.2-5.4); Lymphocytes % (Auto) 24.4 % (13.4-35.0); Mean Corpuscular HGB Conc 32 % (32-34); Monocytes # (Auto) 0.7 K/mm3 (0.0-0.8); Monocytes % (Auto) 9.4 % (0.0-7.3); Platelet Count 131 K/mm3 (140-440); Red Blood Count 5.42 M/mm3 (3.65-5.03); Red Cell Distribution Width 15.7 % (13.2-15.2)
[2017-11-13 06:48] LABS: BUN/Creatinine Ratio 10; Blood Urea Nitrogen 7 mg/dL (9-20); Calcium 8.6 mg/dL (8.4-10.2); Hemolysis Index 4
[2017-11-13 06:55] LABS: Mean Corpuscular Hemoglobin 20 pg (28-32); Mean Corpuscular Volume 64 fl (84-94)
--- NOTE | 2017-11-13 09:38 | Gastroenterology Progress Note ---
Assessment and Plan 1.gallstone pancreatitis -afebrile -WBC - WNL -lipase trending down yesterday- pending for today -hepatic panel pending for today -h/o gallstones presented now w/ increase LFT's and abdominal pain -MRCP w/o signs biliary stones- possible passed stone -surgery consult pending for possible lap debbie -clinically, abd pain is improving and N/V has resolved -tolerating clears- start on soft diet and advance as tolerated -continue supportive care -will follow Subjective Date of service: 11/13/17 Principal diagnosis: gallstone pancreatitis Interval history: Patient resting in bed. No acute events overnight or this am. Denies N/V or abd pain. Tolerating clears. Objective - Constitutional Vitals: Temp Pulse Resp BP Pulse Ox 98.6 F 91 H 20 127/73 96 11/13/17 08:30 11/13/17 08:30 11/13/17 08:30 11/13/17 08:30 11/13/17 08:30 General appearance: no acute distress - EENT Eyes: PERRL, EOM intact ENT: hearing intact - Respiratory Respiratory: bilateral: CTA - Cardiovascular Rhythm: regular Heart Sounds: Present: S1 & S2 - Gastrointestinal General gastrointestinal: Present: soft, non-tender, non-distended, normal bowel sounds - Integumentary Integumentary: Present: warm, dry - Neurologic Neurological: alert and oriented x3 - Labs CBC & Chem 7: 11/13/17 05:59 11/13/17 05:59 Labs: Laboratory Results - last 24 hr 11/12/17 11/13/17 11/13/17 22:05 05:51 05:59 WBC 7.2 RBC 5.42 H Hgb 11.1 L Hct 34.8 L MCV 64 L MCH 20 L MCHC 32 RDW 15.7 H Plt Count 131 L Lymph % (Auto) 24.4 [place] % (Auto) 9.4 H Eos % (Auto) 3.6 Baso % (Auto) 0.5 Lymph # 1.8 [place] # 0.7 Eos # 0.3 Baso # 0.0 Seg Neutrophils % 62.1 Seg Neutrophils # 4.5 Sodium Potassium Chloride Carbon Dioxide Anion Gap BUN Creatinine Estimated GFR BUN/Creatinine Ratio Glucose POC Glucose 167 H 119 H Calcium 12/28/17 05:59 WBC RBC Hgb Hct MCV MCH MCHC RDW Plt Count Lymph % (Auto) [place] % (Auto) Eos % (Auto) Baso % (Auto) Lymph # [place] # Eos # Baso # Seg Neutrophils % Seg Neutrophils # Sodium 142 Potassium 3.6 Chloride 102.0 Carbon Dioxide 27 D Anion Gap 17 BUN 7 L Creatinine 0.7 L Estimated GFR > 60 BUN/Creatinine Ratio 10 Glucose 109 H POC Glucose Calcium 8.6
[2017-11-13] MEDS: ZESTRIL PO SCH (10:11)
[2017-11-13] MEDS: LOPRESSOR PO SCH ×2 (10:12→22:25)
[2017-11-13] MEDS: HALFPRIN EC PO SCH (10:12)
[2017-11-13 10:20] LABS: Albumin 3.6 g/dL (3.9-5); Bilirubin,Direct 0.8 mg/dL (0-0.2)
[2017-11-13] MEDS: MOTRIN PO PRN ×2 (11:37→22:29)
--- NOTE | 2017-11-13 12:20 | Progress Note ---
Assessment and Plan Assessment and plan: Acute biliary pancreatitis. Patient still with increased lipase. Continue IV antibiotics. GI following. MRCP w/o signs biliary stones. Patient most likely passed stone. Surgery consult for possible lap debbie. Lipase improved Left lung mass. CT scan of the chest with contrast shows isolated LLL lesion. Pulmonary recommends CT guided biopsy +/- PET as outpatient. Diabetes mellitus type 2. Continue ADA diet, insulin and Accu-Cheks. Hyperlipidemia. History Interval history: No new issues overnight Hospitalist Physical - Constitutional Vitals: Temp Pulse Resp BP Pulse Ox 98.6 F 91 H 20 127/73 96 11/13/17 08:30 11/13/17 10:12 11/13/17 11:43 11/13/17 08:30 11/13/17 08:30 General appearance: Present: no acute distress - EENT Eyes: Present: PERRL, EOM intact ENT: hearing intact, clear oral mucosa, dentition normal - Neck Neck: Present: supple, normal ROM - Respiratory Respiratory effort: normal Respiratory: bilateral: CTA - Cardiovascular Rhythm: regular Heart Sounds: Present: S1 & S2. Absent: gallop, rub - Extremities Extremities: no ischemia, No edema, Full ROM - Abdominal General gastrointestinal: soft, non-tender, non-distended, normal bowel sounds - Integumentary Integumentary: Present: clear, warm, dry - Neurologic Neurologic: CNII-XII intact, moves all extremities Results - Labs CBC & Chem 7: 11/13/17 05:59 11/13/17 05:59 Labs: Laboratory Last Values WBC 7.2 K/mm3 (4.5-11.0) 11/13/17 05:59 RBC 5.42 M/mm3 (3.65-5.03) H 11/13/17 05:59 Hgb 11.1 gm/dl (11.8-15.2) L 11/13/17 05:59 Hct 34.8 % (35.5-45.6) L 11/13/17 05:59 MCV 64 fl (84-94) L 11/13/17 05:59 MCH 20 pg (28-32) L 11/13/17 05:59 MCHC 32 % (32-34) 11/13/17 05:59 RDW 15.7 % (13.2-15.2) H 11/13/17 05:59 Plt Count 131 K/mm3 (140-440) L 11/13/17 05:59 Lymph % (Auto) 24.4 % (13.4-35.0) 11/13/17 05:59 [place] % (Auto) 9.4 % (0.0-7.3) H 11/13/17 05:59 Eos % (Auto) 3.6 % (0.0-4.3) 11/13/17 05:59 Baso % (Auto) 0.5 % (0.0-1.8) 11/13/17 05:59 Lymph # 1.8 K/mm3 (1.2-5.4) 11/13/17 05:59 [place] # 0.7 K/mm3 (0.0-0.8) 11/13/17 05:59 Eos # 0.3 K/mm3 (0.0-0.4) 11/13/17 05:59 Baso # 0.0 K/mm3 (0.0-0.1) 11/13/17 05:59 Seg Neutrophils % 62.1 % (40.0-70.0) 11/13/17 05:59 Seg Neutrophils # 4.5 K/mm3 (1.8-7.7) 11/13/17 05:59 Sodium 142 mmol/L (137-145) 11/13/17 05:59 Potassium 3.6 mmol/L (3.6-5.0) 11/13/17 05:59 Chloride 102.0 mmol/L (98-107) 11/13/17 05:59 Carbon Dioxide 27 mmol/L (22-30) D 11/13/17 05:59 Anion Gap 17 mmol/L 11/13/17 05:59 BUN 7 mg/dL (9-20) L 11/13/17 05:59 Creatinine 0.7 mg/dL (0.8-1.5) L 11/13/17 05:59 Estimated GFR > 60 ml/min 11/13/17 05:59 BUN/Creatinine Ratio 10 % 11/13/17 05:59 Glucose 109 mg/dL (75-100) H 11/13/17 05:59 POC Glucose 167 (70-105) H 11/13/17 11:23 Calcium 8.6 mg/dL (8.4-10.2) 11/13/17 05:59 Total Bilirubin 3.20 mg/dL (0.1-1.2) H 11/13/17 05:59 Direct Bilirubin 0.8 mg/dL (0-0.2) H 11/13/17 05:59 Indirect Bilirubin 2.4 mg/dL 11/13/17 05:59 AST 76 units/L (5-40) H 11/13/17 05:59 ALT 125 units/L (7-56) H 11/13/17 05:59 Alkaline Phosphatase 187 units/L (35-129) H 11/13/17 05:59 Total Creatine Kinase 83 units/L (55-170) 11/10/17 11:08 CK-MB (CK-2) 1.3 ng/mL (0.0-4.0) 11/10/17 11:08 CK-MB (CK-2) Rel Index 1.5 (0-4) 11/10/17 11:08 Troponin T < 0.010 ng/mL (0.00-0.029) 11/10/17 11:08 Total Protein 6.7 g/dL (6.3-8.2) 11/13/17 05:59 Albumin 3.6 g/dL (3.9-5) L 11/13/17 05:59 Albumin/Globulin Ratio 1.2 % 11/13/17 05:59 Lipase 488 units/L (13-60) H 11/13/17 05:59 Urine Color Rachael (Yellow) 11/10/17 11:55 Urine Turbidity Clear (Clear) 11/10/17 11:55 Urine pH 5.0 (5.0-7.0) 11/10/17 11:55 Ur Specific [place] 1.009 (1.003-1.030) 11/10/17 11:55 Urine Protein 30 mg/dl mg/dL (Negative) 11/10/17 11:55 Urine Glucose (UA) Neg mg/dL (Negative) 11/10/17 11:55 Urine Ketones Neg mg/dL (Negative) 11/10/17 11:55 Urine Blood Sm (Negative) 11/10/17 11:55 Urine Nitrite Neg (Negative) 11/10/17 11:55 Urine Bilirubin Neg (Negative) 11/10/17 11:55 Urine Urobilinogen 2.0 mg/dL (<2.0) 11/10/17 11:55 Ur Leukocyte Esterase Neg (Negative) 11/10/17 11:55 Urine WBC (Auto) 1.0 /HPF (0.0-6.0) 11/10/17 11:55 Urine RBC (Auto) 4.0 /HPF (0.0-6.0) 11/10/17 11:55
--- NOTE | 2017-11-13 13:19 | Progress Note ---
Assessment and Plan full consult dictated. 57 y/o male, resolving biliary pancreatitis. neg abd pain at this time. just started solid diet Abd soft, non tender at present CT - positive gallstones as well as pancreatitis. LLL lung mass GB US - confirms multiple gallstones MRCP - no evidence of CBD stones imp as above. will proceed with semi -elective cholecystectomy as out pt once pancreatitis inflammation resolves will repeat LFT's and amylase lipase in am also pulm eval for lung nodule biopsy Selected Entries 11/13/17 11/13/17 11/13/17 08:30 10:12 11:37 Temperature 98.6 F Pulse Rate 91 H Respiratory 20 Rate Blood Pressure 127/73 Laboratory Tests 11/13/17 11/13/17 11/13/17 05:59 05:59 05:59 WBC 7.2 Hgb 11.1 L Hct 34.8 L Sodium 142 Potassium 3.6 Chloride 102.0 Carbon Dioxide 27 D Anion Gap 17 BUN 7 L Creatinine 0.7 L Total Bilirubin 3.20 H Direct Bilirubin 0.8 H AST 76 H ALT 125 H Alkaline Phosphatase 187 H Lipase 488 H Objective Vital Signs - 12hr 11/13/17 11/13/17 11/13/17 04:30 08:30 10:11 Temperature 98.1 F 98.6 F Pulse Rate 74 91 H 91 H Respiratory 16 20 Rate Blood Pressure 109/64 127/73 O2 Sat by Pulse 97 96 Oximetry 11/13/17 11/13/17 11/13/17 10:12 11:37 11:43 Temperature Pulse Rate 91 H Respiratory 20 20 Rate Blood Pressure O2 Sat by Pulse Oximetry - Labs 11/13/17 05:59 11/13/17 05:59 Diabetes panel 11/13/17 11/13/17 Range/Units 05:59 05:59 Sodium 142 (137-145) mmol/L Potassium 3.6 (3.6-5.0) mmol/L Chloride 102.0 (98-107) mmol/L Carbon Dioxide 27 D (22-30) mmol/L BUN 7 L (9-20) mg/dL Creatinine 0.7 L (0.8-1.5) mg/dL Glucose 109 H (75-100) mg/dL Calcium 8.6 (8.4-10.2) mg/dL AST 76 H (5-40) units/L ALT 125 H (7-56) units/L Alkaline Phosphatase 187 H (35-129) units/L Total Protein 6.7 (6.3-8.2) g/dL Albumin 3.6 L (3.9-5) g/dL Calcium panel 11/13/17 11/13/17 Range/Units 05:59 05:59 Calcium 8.6 (8.4-10.2) mg/dL Albumin 3.6 L (3.9-5) g/dL Pituitary panel 11/13/17 Range/Units 05:59 Sodium 142 (137-145) mmol/L Potassium 3.6 (3.6-5.0) mmol/L Chloride 102.0 (98-107) mmol/L Carbon Dioxide 27 D (22-30) mmol/L BUN 7 L (9-20) mg/dL Creatinine 0.7 L (0.8-1.5) mg/dL Glucose 109 H (75-100) mg/dL Calcium 8.6 (8.4-10.2) mg/dL Adrenal panel 11/13/17 11/13/17 Range/Units 05:59 05:59 Sodium 142 (137-145) mmol/L Potassium 3.6 (3.6-5.0) mmol/L Chloride 102.0 (98-107) mmol/L Carbon Dioxide 27 D (22-30) mmol/L BUN 7 L (9-20) mg/dL Creatinine 0.7 L (0.8-1.5) mg/dL Glucose 109 H (75-100) mg/dL Calcium 8.6 (8.4-10.2) mg/dL Total Bilirubin 3.20 H (0.1-1.2) mg/dL AST 76 H (5-40) units/L ALT 125 H (7-56) units/L Alkaline Phosphatase 187 H (35-129) units/L Total Protein 6.7 (6.3-8.2) g/dL Albumin 3.6 L (3.9-5) g/dL
--- NOTE | 2017-11-13 14:46 | Event Note ---
Date: 11/13/17 Can go home pulm-krishnamurthy. Recommend f/u in our office once cholecystectomy is completed, and will plan to proceed with either PET +/- CT guided biopsy. Office information given to him. He understands need for prompt f/u. Will sign off. Call with questions.
[2017-11-13] MEDS: NACL 0.45% 1000 ML 1,000 ML IV SCH (15:36)
--- NOTE | 2017-11-14 05:05 | Consultation ---
REASON FOR CONSULTATION: Rule out biliary pancreatitis. HISTORY OF PRESENT ILLNESS: The patient is a pleasant 57-year-old gentleman who was admitted to the hospital approximately 3-4 days ago with a chief complaint of epigastric abdominal pain radiating to his back, accompanied by nausea and vomiting. The patient states he is " Also, just started a solid diet this morning, which he just completed and as of now appears to be tolerating. PAST MEDICAL HISTORY: Pertinent for heart disease, diabetes, and hypertension. PAST SURGICAL HISTORY: Status post cardiac bypass surgery back in 10/2012, also cataract surgery. ALLERGIES: ALLERGIC TO PERCOCET. MEDICATIONS: Include aspirin, Lipitor, metformin, glyburide, metoprolol, losartan. FAMILY HISTORY: Heart disease, gallbladder disease in both mom and sister. SOCIAL HISTORY: Denies any smoking or drinking. REVIEW OF SYSTEMS: Noncontributory. PHYSICAL EXAMINATION: GENERAL: At this time reveals the patient to be awake, alert, cooperative, no acute distress. VITAL SIGNS: Shown to be afebrile with a temperature of 98.6, blood pressure is 127/73, pulse of 91, respirations of 20. HEENT: Pupils are equal and reactive to light and accommodation. Sclerae nonicteric. ABDOMEN: Examination of the abdomen reveals to be soft and nontender at present. Bowel sounds are present. LABORATORY DATA: Lab work at present includes a CBC which shows a white count of 7.2, H and H is 11.1 and 34.8. Electrolytes are essentially within normal limits. Total bilirubin was 7.2 on admission, currently is 3.2 with a direct of 0.8. AST has come down from 122 to 76, ALT down from 237 to 125 and alkaline phosphatase is down from 245 on admission to 187. Gallbladder ultrasound has been performed, which was consistent with gallstones and pancreatitis. CT scan of the abdomen and pelvis was also performed, which reveals a left lower lobe pulmonary mass, ____ confirms pancreatitis and cholelithiasis. Questionable dilated common bile duct. Subsequent MRCP was performed, which revealed no stones in the common duct, most likely a stone has since passed. A CT of the chest was then also performed, which confirmed the left lower lobe lung mass measured approximately 1.7 x 1.3 cm. ASSESSMENT AND PLAN: 1. A 57-year-old gentleman with history of heart disease as well as diabetes. 2. Active pancreatitis. 3. Choledocholithiasis, probable biliary pancreatitis with recently passed stone. RECOMMENDATIONS: We will wait to see how the patient tolerates his low fat solid diet. I would recommend to stop feeding if pain recurs. Also, will follow up on bilirubins as well as amylase, lipase and rest of LFTs with followup labs in the morning. Obtain a pulmonary evaluation, which you have done for a CT-guided lung biopsy. We will most likely proceed with semi-elective laparoscopic cholecystectomy in 1-2 weeks once the surrounding pancreatitis inflammation has resolved to improve the chances of being able to perform this laparoscopically and reduce morbidity and mortality. We will follow with you. Thank you very much for consultation. JOB# [id number] JEANNIE/ESTEFANIA
[2017-11-14] MEDS: ZOSYN/NS 4.5GM/100ML 4.5 GM/100 ML VIAL IV SCH (06:36)
[2017-11-14] MEDS: MOTRIN PO PRN (06:37)
[2017-11-14 07:24] LABS: Hematocrit 33.1 % (35.5-45.6); Hemoglobin 10.7 gm/dl (11.8-15.2); Mean Corpuscular HGB Conc 32 % (32-34); Platelet Count 136 K/mm3 (140-440); Red Blood Count 5.18 M/mm3 (3.65-5.03); Red Cell Distribution Width 15.8 % (13.2-15.2)
[2017-11-14 07:32] LABS: Mean Corpuscular Hemoglobin 21 pg (28-32); Mean Corpuscular Volume 64 fl (84-94)
[2017-11-14 07:44] LABS: Alanine Aminotransferase 108 units/L (7-56); Albumin 3.4 g/dL (3.9-5); BUN/Creatinine Ratio 7; Blood Urea Nitrogen 5 mg/dL (9-20); Calcium 8.5 mg/dL (8.4-10.2); Hemolysis Index 1
[2017-11-14 08:24] VITALS: BP 109/80
[2017-11-14 08:25] LABS: Total Cells Counted 100
[2017-11-14 08:26] LABS: Anisocytosis 1+; Hypochromasia 1+; Ovalocytes 1+; Platelet Estimate Appears Decreased; Poikilocytosis 1+; Tear Drop Cells Few
[2017-11-14] MEDS: HALFPRIN EC PO SCH (09:31)
[2017-11-14 09:57] LABS: Albumin 3.5 g/dL (3.9-5); Bilirubin,Direct 0.5 mg/dL (0-0.2)
[2017-11-14] MEDS: ZESTRIL PO SCH (10:00)
[2017-11-14] MEDS: LOPRESSOR PO SCH (10:00)
--- NOTE | 2017-11-14 13:35 | Progress Note ---
Assessment and Plan Pt apparently just d/c'ed. RN confirms that my number given and pt will call and f/u as out pt RN states he was doing well. mis diet. no compl. LFT's, amylase and lipase down. will await pt's call and f/u as outpt. will need semi-elective cholecystectomy. Selected Entries 11/14/17 07:50 Temperature 98.5 F Pulse Rate 76 Respiratory 20 Rate Blood Pressure 109/80 Laboratory Tests 11/13/17 11/14/17 11/14/17 05:59 07:01 07:01 WBC 7.2 4.6 Hgb 11.1 L 10.7 L Hct 34.8 L 33.1 L Sodium Potassium Chloride Anion Gap BUN Creatinine Glucose Total Bilirubin 1.70 H Direct Bilirubin 0.5 H Indirect Bilirubin 1.2 AST 70 H ALT 105 H Total Protein 6.9 Amylase Lipase 272 H 11/14/17 07:01 WBC Hgb Hct Sodium 143 Potassium 3.6 Chloride 103.9 Anion Gap 19 BUN 5 L Creatinine 0.7 L Glucose 148 H Total Bilirubin Direct Bilirubin Indirect Bilirubin AST ALT Total Protein Amylase 143 H Lipase Objective Vital Signs - 12hr 11/14/17 11/14/17 11/14/17 04:41 06:37 07:37 Temperature 98.5 F Pulse Rate 71 Respiratory 18 20 20 Rate Blood Pressure 123/78 O2 Sat by Pulse 96 Oximetry 11/14/17 07:50 Temperature 98.5 F Pulse Rate 76 Respiratory 20 Rate Blood Pressure 109/80 O2 Sat by Pulse 96 Oximetry - Labs 11/14/17 07:01 11/14/17 07:01 Diabetes panel 11/14/17 11/14/17 Range/Units 07:01 07:01 Sodium 143 (137-145) mmol/L Potassium 3.6 (3.6-5.0) mmol/L Chloride 103.9 (98-107) mmol/L Carbon Dioxide 24 (22-30) mmol/L BUN 5 L (9-20) mg/dL Creatinine 0.7 L (0.8-1.5) mg/dL Glucose 148 H (75-100) mg/dL Calcium 8.5 (8.4-10.2) mg/dL AST 70 H 64 H (5-40) units/L ALT 105 H 108 H (7-56) units/L Alkaline Phosphatase 165 H 170 H (35-129) units/L Total Protein 6.9 6.6 (6.3-8.2) g/dL Albumin 3.5 L 3.4 L (3.9-5) g/dL Calcium panel 11/14/17 11/14/17 Range/Units 07:01 07:01 Calcium 8.5 (8.4-10.2) mg/dL Albumin 3.5 L 3.4 L (3.9-5) g/dL Pituitary panel 11/14/17 Range/Units 07:01 Sodium 143 (137-145) mmol/L Potassium 3.6 (3.6-5.0) mmol/L Chloride 103.9 (98-107) mmol/L Carbon Dioxide 24 (22-30) mmol/L BUN 5 L (9-20) mg/dL Creatinine 0.7 L (0.8-1.5) mg/dL Glucose 148 H (75-100) mg/dL Calcium 8.5 (8.4-10.2) mg/dL Adrenal panel 11/14/17 11/14/17 Range/Units 07:01 07:01 Sodium 143 (137-145) mmol/L Potassium 3.6 (3.6-5.0) mmol/L Chloride 103.9 (98-107) mmol/L Carbon Dioxide 24 (22-30) mmol/L BUN 5 L (9-20) mg/dL Creatinine 0.7 L (0.8-1.5) mg/dL Glucose 148 H (75-100) mg/dL Calcium 8.5 (8.4-10.2) mg/dL Total Bilirubin 1.70 H 1.70 H (0.1-1.2) mg/dL AST 70 H 64 H (5-40) units/L ALT 105 H 108 H (7-56) units/L Alkaline Phosphatase 165 H 170 H (35-129) units/L Total Protein 6.9 6.6 (6.3-8.2) g/dL Albumin 3.5 L 3.4 L (3.9-5) g/dL
--- NOTE | 2017-11-14 14:58 | Gastroenterology Progress Note ---
Assessment and Plan GI: resolving gallstone pancreatitis - advance diet as tolerated - gb removal per surgery - ok to d/c from GI standpoint, will sign off, call if needed Subjective Date of service: 11/14/17 Principal diagnosis: gallstone pancreatitis Interval history: - stable w/o complaints overnight Objective - Constitutional Vitals: Temp Pulse Resp BP Pulse Ox 98.5 F 76 20 109/80 96 11/14/17 07:50 11/14/17 07:50 11/14/17 07:50 11/14/17 07:50 11/14/17 07:50 General appearance: no acute distress - Respiratory Respiratory: bilateral: CTA - Cardiovascular Rhythm: regular Heart Sounds: Present: S1 & S2 - Gastrointestinal General gastrointestinal: Present: soft, non-tender - Labs CBC & Chem 7: 11/14/17 07:01 11/14/17 07:01 Labs: Laboratory Results - last 24 hr 11/13/17 11/13/17 11/14/17 16:10 21:06 06:13 WBC RBC Hgb Hct MCV MCH MCHC RDW Plt Count [place] % (Auto) Add Manual Diff Total Counted Seg Neuts % (Manual) Band Neutrophils % Lymphocytes % (Manual) Reactive Lymphs % (Man) Monocytes % (Manual) Eosinophils % (Manual) Basophils % (Manual) Metamyelocytes % Myelocytes % Promyelocytes % Blast Cells % Nucleated RBC % Seg Neutrophils # Man Band Neutrophils # Lymphocytes # (Manual) Abs React Lymphs (Man) Monocytes # (Manual) Eosinophils # (Manual) Basophils # (Manual) Metamyelocytes # Myelocytes # Promyelocytes # Blast Cells # WBC Morphology Hypersegmented Neuts Hyposegmented Neuts Hypogranular Neuts Smudge Cells Toxic Granulation Toxic Vacuolation Dohle Bodies Pelger-Huet Anomaly Dante Rods Platelet Estimate Clumped Platelets Plt Clumps, EDTA Large Platelets Giant Platelets Platelet Satelliting Plt Morphology Comment RBC Morphology Dimorphic RBCs Polychromasia Hypochromasia Poikilocytosis Anisocytosis Microcytosis Macrocytosis Spherocytes Pappenheimer Bodies Sickle Cells Target Cells Tear Drop Cells Ovalocytes Helmet Cells [place] Bodies [place] Cells Bite Cells Crenated Cell Elliptocytes Acanthocytes (Spur) Rouleaux Hemoglobin C Crystals Schistocytes Malaria parasites Niko Bodies Hem Pathologist Commnt Sodium Potassium Chloride Carbon Dioxide Anion Gap BUN Creatinine Estimated GFR BUN/Creatinine Ratio Glucose POC Glucose 141 H 140 H 113 H Calcium Total Bilirubin Direct Bilirubin Indirect Bilirubin AST ALT Alkaline Phosphatase Total Protein Albumin Albumin/Globulin Ratio Amylase Lipase 11/14/17 11/14/17 11/14/17 07:01 07:01 07:01 WBC 4.6 RBC 5.18 H Hgb 10.7 L Hct 33.1 L MCV 64 L MCH 21 L MCHC 32 RDW 15.8 H Plt Count 136 L [place] % (Auto) Carpenter Labor Supervisor Add Manual Diff Complete Total Counted 100 Seg Neuts % (Manual) 68.0 Band Neutrophils % 0 Lymphocytes % (Manual) 21.0 Reactive Lymphs % (Man) 0 Monocytes % (Manual) 7.0 Eosinophils % (Manual) 3.0 Basophils % (Manual) 1.0 Metamyelocytes % 0 Myelocytes % 0 Promyelocytes % 0 Blast Cells % 0 Nucleated RBC % Not Reportable Seg Neutrophils # Man 3.1 Band Neutrophils # 0.0 Lymphocytes # (Manual) 1.0 L Abs React Lymphs (Man) 0.0 Monocytes # (Manual) 0.3 Eosinophils # (Manual) 0.1 Basophils # (Manual) 0.0 Metamyelocytes # 0.0 Myelocytes # 0.0 Promyelocytes # 0.0 Blast Cells # 0.0 WBC Morphology Not Reportable Hypersegmented Neuts Not Reportable Hyposegmented Neuts Not Reportable Hypogranular Neuts Not Reportable Smudge Cells Not Reportable Toxic Granulation Not Reportable Toxic Vacuolation Not Reportable Dohle Bodies Not Reportable Pelger-Huet Anomaly Not Reportable Dante Rods Not Reportable Platelet Estimate Appears decreased Clumped Platelets Not Reportable Plt Clumps, EDTA Not Reportable Large Platelets Not Reportable Giant Platelets Not Reportable Platelet Satelliting Not Reportable Plt Morphology Comment Not Reportable RBC Morphology Not Reportable Dimorphic RBCs Not Reportable Polychromasia Not Reportable Hypochromasia 1+ Poikilocytosis 1+ Anisocytosis 1+ Microcytosis Not Reportable Macrocytosis Not Reportable Spherocytes Not Reportable Pappenheimer Bodies Not Reportable Sickle Cells Not Reportable Target Cells Not Reportable Tear Drop Cells Few Ovalocytes 1+ Helmet Cells Not Reportable [place] Bodies Not Reportable [place] Not Reportable [place] Cells Not Reportable Bite Cells Not Reportable Crenated Cell Not Reportable Elliptocytes 1+ Acanthocytes (Spur) Not Reportable Rouleaux Not Reportable Hemoglobin C Crystals Not Reportable Schistocytes Not Reportable Malaria parasites Not Reportable Niko Bodies Not Reportable Hem Pathologist Commnt No Sodium 143 Potassium 3.6 Chloride 103.9 Carbon Dioxide 24 Anion Gap 19 BUN 5 L Creatinine 0.7 L Estimated GFR > 60 BUN/Creatinine Ratio 7 Glucose 148 H POC Glucose Calcium 8.5 Total Bilirubin 1.70 H 1.70 H Direct Bilirubin 0.5 H Indirect Bilirubin 1.2 AST 70 H 64 H ALT 105 H 108 H Alkaline Phosphatase 165 H 170 H Total Protein 6.9 6.6 Albumin 3.5 L 3.4 L Albumin/Globulin Ratio 1.0 1.1 Amylase 143 H Lipase 272 H 11/14/17 13:03 WBC RBC Hgb Hct MCV MCH MCHC RDW Plt Count [place] % (Auto) Add Manual Diff Total Counted Seg Neuts % (Manual) Band Neutrophils % Lymphocytes % (Manual) Reactive Lymphs % (Man) Monocytes % (Manual) Eosinophils % (Manual) Basophils % (Manual) Metamyelocytes % Myelocytes % Promyelocytes % Blast Cells % Nucleated RBC % Seg Neutrophils # Man Band Neutrophils # Lymphocytes # (Manual) Abs React Lymphs (Man) Monocytes # (Manual) Eosinophils # (Manual) Basophils # (Manual) Metamyelocytes # Myelocytes # Promyelocytes # Blast Cells # WBC Morphology Hypersegmented Neuts Hyposegmented Neuts Hypogranular Neuts Smudge Cells Toxic Granulation Toxic Vacuolation Dohle Bodies Pelger-Huet Anomaly Dante Rods Platelet Estimate Clumped Platelets Plt Clumps, EDTA Large Platelets Giant Platelets Platelet Satelliting Plt Morphology Comment RBC Morphology Dimorphic RBCs Polychromasia Hypochromasia Poikilocytosis Anisocytosis Microcytosis Macrocytosis Spherocytes Pappenheimer Bodies Sickle Cells Target Cells Tear Drop Cells Ovalocytes Helmet Cells [place] Bodies [place] Toni Cells Bite Cells Crenated Cell Elliptocytes Acanthocytes (Spur) Rouleaux Hemoglobin C Crystals Schistocytes Malaria parasites Niko Bodies Hem Pathologist Commnt Sodium Potassium Chloride Carbon Dioxide Anion Gap BUN Creatinine Estimated GFR BUN/Creatinine Ratio Glucose POC Glucose 110 H Calcium Total Bilirubin Direct Bilirubin Indirect Bilirubin AST ALT Alkaline Phosphatase Total Protein Albumin Albumin/Globulin Ratio Amylase Lipase
--- NOTE | 2017-11-14 22:04 | Discharge Summary ---
<IAM LINDER - Last Filed: 11/14/17 22:34> Providers - Providers Date of Admission: 11/10/17 14:08 Date of discharge: 11/14/17 Attending physician: TAISHA SALGADO 11/10/17 16:37 Consult to Physician [CONS] Routine Consulting Provider: FAISAL FERRARA Reason For Exam: lung mass Place consult to:: DR. VEGA Notified:: A.S. Phone number called:: [phone] Was contact made?: Yes If yes, spoke with:: BUFFY Time called:: 16:58 Comment:: AVE NOTIFZAYDA 11/11/17 07:00 Consult to Physician [CONS] Routine Consulting Provider: ALEX MIJARES Reason For Exam: gallstone pancreatitis Place consult to:: gi/DR. MIJARES Notified:: A.S. Phone number called:: [phone] Was contact made?: Yes If yes, spoke with:: JANELL Time called:: 16:26 Comment:: AVE NOTIFIED 11/13/17 09:12 Consult to Physician [CONS] Routine Consulting Provider: GARY VICK Reason For Exam: gallstone pancreatitis Place consult to:: dr. vick Notified:: office Phone number called:: Was contact made?: Yes If yes, spoke with:: griselda Oliveira called:: 11:58 Primary care physician: EVELIN MORATAYA Hospitalization Reason for admission: Abdominal pain Condition: Good Hospital course: Patient is a 57 year old with past medical history of with DM, HLD, CAD S/P CABG presents to ED with chief complaint of abdominal pain. Patient states his epigastric abdominal pain radiating to his back intermittently for the past 4 days. Patient diagnosed with Acute biliary pancreatitis, Left lung mass, Diabetes mellitus type 2 and Hyperlipidemia. MRCP done no biliary stones; patient most likely passed stone. Patient advised to follow up with for possible lap debbie as outpatient. Lipase improved. CT scan of the chest with contrast shows isolated LLL lesion. Also patient advised to follow up with Pulmonary for CT guided biopsy +/- PET as outpatient. He was treated with IV fluid hydration and insulin. Patient is clinically improved. Patient advised to follow-up with her primary care provider. Discharge Diagnosed Acute biliary pancreatitis. Left lung mass. Diabetes mellitus type 2. Hyperlipidemia. Disposition: DC-01 TO HOME OR SELFCARE Time spent for discharge: 33 minutes Core Measure Documentation - Palliative Care Palliative Care/ Comfort Measures: Not Applicable - Core Measures Any of the following diagnoses?: none Exam - Constitutional Vitals: Temp Pulse Resp BP Pulse Ox 98.5 F 76 20 109/80 96 11/14/17 07:50 11/14/17 07:50 11/14/17 07:50 11/14/17 07:50 11/14/17 07:50 General appearance: Present: no acute distress - EENT Eyes: Present: PERRL ENT: hearing intact - Neck Neck: Present: supple - Respiratory Respiratory effort: normal Respiratory: bilateral: CTA - Cardiovascular Rhythm: regular Heart Sounds: Present: S1 & S2 - Abdominal General gastrointestinal: Present: soft, non-tender Male genitourinary: Present: deferred - Rectal Rectal Exam: deferred - Integumentary Integumentary: Present: clear, warm, dry - Musculoskeletal Musculoskeletal: strength equal bilaterally - Psychiatric Psychiatric: appropriate mood/affect - Neurologic Neurologic: CNII-XII intact - Allied Health Allied health notes reviewed: nursing Plan Diet: low fat, low cholesterol, low salt Follow up with: PRIMARY CARE, [Referring] - 3-5 Days <TAISHA SALGADO - Last Filed: 12/01/17 10:13> Providers - Providers Date of Admission: 11/10/17 14:08 Attending physician: TAISHA SALGADO 11/10/17 16:37 Consult to Physician [CONS] Routine Consulting Provider: FAISAL FERRARA Reason For Exam: lung mass Place consult to:: DR. VEGA Notified:: A.S. Phone number called:: [phone] Was contact made?: Yes If yes, spoke with:: BUFFY Time called:: 16:58 Comment:: AVE NOTIFZAYDA 11/11/17 07:00 Consult to Physician [CONS] Routine Consulting Provider: ALEX MIJARES Reason For Exam: gallstone pancreatitis Place consult to:: gi/DR. MIJARES Notified:: A.S. Phone number called:: [phone] Was contact made?: Yes If yes, spoke with:: JANELL Time called:: 16:26 Comment:: AVE NOTIFIED 11/13/17 09:12 Consult to Physician [CONS] Routine Consulting Provider: GARY VICK Reason For Exam: gallstone pancreatitis Place consult to:: dr. vick Notified:: office Phone number called:: Was contact made?: Yes If yes, spoke with:: griselda Time called:: 11:58 Primary care physician: EVELIN MORATAYA Hospitalization Hospital course: I saw and evaluated the patient. I agree with the findings and the plan of care as documented in the Nurse Practitioner's~note, with the following corrections and additions. Exam - Constitutional Vitals: Temp Pulse Resp BP Pulse Ox 98.5 F 76 20 109/80 96 11/14/17 07:50 11/14/17 07:50 11/14/17 07:50 11/14/17 07:50 11/14/17 07:50
--- NOTE | 2017-11-20 12:42 | Query-Anemia ---
Dear ____Edmund Date:____11/20/17 Equipment Mechanic/CDS: Rmbhanu / Antonio Phone#:___[phone] Exercise your independent professional judgment when responding to this query. Questions asked do not imply a particular answer is desired or expected. We greatly appreciate your clarification on this issue. Clinical Documentation States: 57 year old male was admitted on 11/10/17 The H&P (Dr. Fox) states " Chief complaint: My stomach hurts , 57 YO Male with DM, HLD, CAD S/P CABG presents to ED for evaluation. Pt states that he has experienced pain in his abdomen for the past 4 days " The progress note (Dr. Shaffer 11/13/17) states " Acute biliary pancreatitis. Patient still with increased lipase. Continue IV antibiotics. GI following. MRCP w/o signs biliary stones. Patient most likely passed stone. Surgery consult for possible lap debbie. Lipase improved " Clinical Findings Show: 11/10/17 11/14/17 Hgb: 13.2 10.7 Hct: 43.0 33.1 Etiology: [ x] Precipitous Drop in Hemoglobin [ ] Precipitous Drop in Hematocrit [ ] Anemia due to acute blood loss [ ] Anemia due to chronic blood loss [ ] Anemia secondary to ESRD [ ] Anemia secondary to neoplastic disease [ ] Iron deficiency anemia due to malabsorption [ ] GI Bleed from: [ ] Anemia of chronic disease ,Other: [ ] Other: [ ] Unable to determine [ ] Comment/Explanation: Present on Admission: [ ] Yes (Y) [ x] Clinically undeterminable (W) [ ] No (N) Please also document response in your Progress Notes and/or Discharge Summary and indicate if the condition was present on admission. MTDD
== END 2017-11-14 13:30 | disposition home or self-care (01) | DRG 439 ==
LOC: ED 10:02 → 3A 14:08
PROVIDERS: ADMIT Internal Medicine; ATTEND Hospitalist
PROC: 3E0234Z Introduction of Serum, Toxoid and Vaccine into Muscle, Percutaneous Approach (ICD-10-PCS; principal; 2017-11-10)
DX: K85.10 Biliary acute pancreatitis without necrosis or infection (principal); R71.0 Precipitous drop in hematocrit; R91.8 Other nonspecific abnormal finding of lung field; E11.9 Type 2 diabetes mellitus without complications; E78.5 Hyperlipidemia, unspecified; Z88.8 Allergy status to other drugs, medicaments and biological substances; Z23 Encounter for immunization; Z79.82 Long term (current) use of aspirin; Z79.899 Other long term (current) drug therapy; Z95.1 Presence of aortocoronary bypass graft; I25.10 Atherosclerotic heart disease of native coronary artery without angina pectoris
CPT/HCPCS: 36415; 71260; 74177; 74181; 76705; 80048; 80053; 80074; 81001; 82150; 82550; 82553; 82962; 83690; 84484; 85007; 85025; 90732; 93005; 93010; 96372; 96374; 96375; A9270-GY; J0500; J1170; J1200; J2270; J2405; J2543; J3010; Q9967

== ENCOUNTER 2017-12-05 09:00 | Day surgery (SDC) | payer OTHER ==
[2017-12-04 11:38] LABS: Basophils # (Auto) 0.1 K/mm3 (0.0-0.1); Basophils % (Auto) 1.4 % (0.0-1.8); Eosinophils # (Auto) 0.2 K/mm3 (0.0-0.4); Eosinophils % (Auto) 3.5 % (0.0-4.3); Hematocrit 36.2 % (35.5-45.6); Hemoglobin 11.3 gm/dl (11.8-15.2); Lymphocytes # (Auto) 2.3 K/mm3 (1.2-5.4); Lymphocytes % (Auto) 38.4 % (13.4-35.0); Mean Corpuscular HGB Conc 31 % (32-34); Mean Corpuscular Hemoglobin 20 pg (28-32); Mean Corpuscular Volume 64 fl (84-94); Monocytes # (Auto) 0.6 K/mm3 (0.0-0.8); Monocytes % (Auto) 10.2 % (0.0-7.3); Platelet Count 173 K/mm3 (140-440)
[2017-12-04 11:50] LABS: Alanine Aminotransferase 45 units/L (7-56); Albumin 4.4 g/dL (3.9-5); BUN/Creatinine Ratio 13; Blood Urea Nitrogen 9 mg/dL (9-20); Calcium 9.5 mg/dL (8.4-10.2); Hemolysis Index 7
[~2017-12-05 09:00] MED LIST: ANCEF/STERILE WATER 2 GM/20 ML 2 GM/20 ML SYRINGE IV NR; MARCAINE 0.5% INFILTRATI ONE; NACL 0.9% IR ONE
--- NOTE | 2017-12-05 09:48 | Anesthesia Consultation ---
Anesthesia Consult and Med Hx Date of service: 12/05/17 - Airway Anesthetic Teeth Evaluation: Poor, Chipped ROM Head & Neck: Adequate Mental/Hyoid Distance: Adequate Mallampati Class: Class II Intubation Access Assessment: Good - Pulmonary Exam CTA: Yes - Cardiac Exam Cardiac Exam: RRR - Pre-Operative Health Status ASA Pre-Surgery Classification: ASA3 Proposed Anesthetic Plan: General - Pulmonary Hx Smoking: No Hx Asthma: No COPD: No Hx Pneumonia: No Hx Sleep Apnea: No - Cardiovascular System Hx Hypertension: Yes (PRE) Hx Coronary Artery Disease: Yes (s/p CABG) - Central Nervous System Hx Seizures: No CVA: No Hx Psychiatric Problems: No - Gastrointestinal Hx Ulcer: No Hx Gastroesophageal Reflux Disease: Yes - Endocrine Hx Renal Disease: No Hx End Stage Renal Disease: No Hx Cirrhosis: No Hx Liver Disease: No Hx Non-Insulin Dependent Diabetes: Yes Hx Hypothyroidism: No Hx Hyperthyroidism: No - Hematic Hx Anemia: No Hx Sickle Cell Disease: No - Other Systems Hx Alcohol Use: No Hx Substance Use: No Hx Cancer: No - Additional Comments Anesthesia Medical History Comments: Cardiac clearance appreciated. Informed consent obtained.
--- NOTE | 2017-12-05 09:50 | Anesthesia Day of Surgery ---
Anesthesia Day of Surgery - Day of Surgery Patient Examined: Yes Patient H&P Reviewed: Yes Patient is NPO: Yes Beta Blockers: Yes
[2017-12-05] MEDS ORDERED: DILAUDID IV PRN (09:51)
[2017-12-05] MEDS ORDERED: NACL 0.9% 1000 ML 1,000 ML IV SCH (10:00)
[2017-12-05] MEDS ORDERED: PEPCID IV NR (10:00)
[2017-12-05] MEDS ORDERED: MARCAINE 0.5% 30 ML INFILTRATI ONE (10:42)
[2017-12-05] MEDS ORDERED: DIPRIVAN 10 MG/ML IV ONE (10:43)
[2017-12-05] MEDS ORDERED: DILAUDID ONE ×2 (10:43→13:22)
[2017-12-05] MEDS ORDERED: ZOFRAN ONE (10:43)
[2017-12-05] MEDS ORDERED: XYLOCAINE MPF 2% ONE (10:43)
[2017-12-05] MEDS ORDERED: DECADRON ONE (10:43)
[2017-12-05] MEDS ORDERED: ZEMURON IV ONE (10:43)
[2017-12-05] MEDS ORDERED: ceFAZolin 2 GM in NACL 0.9% 100 ML IV ONE (11:00)
[2017-12-05] MEDS ORDERED: NEO SYNEPHRINE/NS Syringe(OR USE) IV ONE (11:25)
--- NOTE | 2017-12-05 11:54 | Discharge Summary ---
Short Stay Discharge Plan Activity: other (observe x 4 hrs. then march d/c if stable. ice chips today. cl liq in am. low fat solid diet in 48hrs) Weight Bearing Status: Non-Weight Bearing (no lifting over 5 lbs x 2 wks. keep dressings dry x 5 days) Diet: other Wound: keep clean and dry Additional Instructions: aleve I po q 6-8 hrs prn for breakthrough pain Follow up with: GARY VICK MD [Staff Physician] - 7 Days
[2017-12-05] MEDS ORDERED: S2 RACEPINEPHRINE 2.25% IH ONE ×2 (12:15→12:58)
[2017-12-05] MEDS ORDERED: APRESOLINE IV PRN (12:49)
--- NOTE | 2017-12-05 12:58 | Operative Report ---
PREOPERATIVE DIAGNOSIS: Gallbladder disease. POSTOPERATIVE DIAGNOSIS: Gallbladder disease. PROCEDURE: Laparoscopic cholecystectomy. SURGEON: Carlton Ray M.D. AIRPORT CONTROL OPERATOR: Dr. Lehman. ANESTHESIA: General. ESTIMATED BLOOD LOSS: Minimal. DRAINS: None. COMPLICATIONS: None. FINDINGS: Thickened somewhat intrahepatic gallbladder with surrounding omental adhesions and full of stones. The patient also is status post recent admission for biliary pancreatitis a couple of weeks ago. DESCRIPTION OF PROCEDURE: The patient was taken to the operating room, prepped and draped in usual sterile fashion. Veress needle was inserted and CO2 insufflation begun. A 5 mm trocar was inserted and camera inserted. All other trocars were inserted under direct visualization. Gallbladder was then grasped at the fundus and infundibulum, and retracted towards the right subphrenic space. ____ omental adhesions were noted, which were bluntly dissected free. Dissection was then carried out along Calot's triangle. The cystic duct and artery were delineated in their entire course. Both were then doubly clipped and transected. Hook electrocautery was used to dissect the gallbladder from the overlying liver bed. Prior to complete removal, the liver bed was inspected for bleeding and noted to be dry. The cystic duct and artery stumps were once again visualized. The clips were noted to be securely in place with no evidence of bleeding or bile leak. Gallbladder was then completely freed and brought out through the subxiphoid port. This area was inspected for bleeding and noted to be dry. Subxiphoid trocar was then gently reinserted. All other 5 mm ports were removed under direct visualization. No bleeding or oozing noted. Subxiphoid trocar was then used to expel the CO2 and the trocar removed. The fascia at this site was closed with a [id number] 0 Vicryl suture. The skin and all port sites were closed with subcuticular 4-0 Vicryl. A 0.5% Marcaine was infiltrated over the port site for postoperative pain relief. The patient tolerated the procedure well and left OR in stable condition. JOB# [id number] JEANNIE/ESTEFANIA
--- NOTE | 2017-12-05 13:20 | Post Anesthesia Evaluation ---
- Post Anesthesia Evaluation Patient Participated: Yes Airway Patent: Yes Stable Respiratory Function: Yes Nausea/Vomiting: No Temp > 96.8F: Yes Pain Manageable: Yes Adequeate Hydration: Yes Anesthesia Complications: No Block Receding Appropriately: Not Applicable Patient on Ventilator: No
[2017-12-05 16:28] VITALS: BP 128/76
== END 2017-12-05 16:15 | disposition home or self-care (01) ==
LOC: OR 09:00
PROVIDERS: ATTEND Surgery
DX: K80.20 Calculus of gallbladder without cholecystitis without obstruction (principal); K85.90 Acute pancreatitis without necrosis or infection, unspecified; K66.0 Peritoneal adhesions (postprocedural) (postinfection); K21.9 Gastro-esophageal reflux disease without esophagitis; I10 Essential (primary) hypertension; E11.9 Type 2 diabetes mellitus without complications; I25.10 Atherosclerotic heart disease of native coronary artery without angina pectoris; Z95.1 Presence of aortocoronary bypass graft
CPT/HCPCS: 36415; 47562; 80053; 82150; 82962; 85025; 88304; 93005; 93010; J0360; J0690; J1100; J1170; J2370; J2405; J2704; J7030

== ENCOUNTER 2018-01-22 07:08 | Outpatient (CLI) | payer OTHER ==
--- NOTE | 2018-01-22 15:03 | PET Report ---
PET SB TO MT INITIAL: HISTORY: Left lung mass, lung cancer. TECHNIQUE: 13.9 millicuries F-18 FDG was administered intravenously. Noncontrast CT images and PET images were obtained from the skull base to the proximal thighs. Fused images were reviewed on a workstation. The patient's blood glucose level measured 103. COMPARISON: CT chest with contrast dated 11/12/17. FINDINGS: BRAIN: physiologic FDG uptake in the imaged brain. NECK: physiologic FDG uptake. MEDIASTINUM: physiologic FDG uptake. LUNGS: 1.9 cm mass in the left lower lobe demonstrates a max SUV of 1.9. No additional lung mass is identified. The lung lipomas within normal limits without evidence of emphysema or other parenchymal disease. PLEURA/PERICARDIUM: physiologic FDG uptake. THORACIC LYMPH NODES: physiologic FDG uptake. HEPATOBILIARY: physiologic FDG uptake. Mean liver SUV measures 3.0. PANCREAS: physiologic FDG uptake. SPLEEN: physiologic FDG uptake. ADRENAL GLANDS: physiologic FDG uptake. KIDNEYS/RENAL COLLECTING SYSTEMS: physiologic FDG uptake. BOWEL/MESENTERY: physiologic FDG uptake. PELVIC VISCERA: physiologic FDG uptake. ABDOMINAL/PELVIC LYMPH NODES: physiologic FDG uptake. MUSCULOSKELETAL: physiologic FDG uptake. IMPRESSION: Suspicious 1.9 cm soft tissue density mass is identified in the left lower lobe. Although this mass is iso-metabolic/hypometabolic with max SUV measuring 1.9, a neoplastic process is suspected until proven otherwise. No evidence for metastatic disease at this time.
== END 2018-01-22 07:09 | disposition home or self-care (01) ==
LOC: PET 07:08
PROVIDERS: ATTEND Internal Medicine Critical Care Medicine
DX: R91.1 Solitary pulmonary nodule (principal); R91.8 Other nonspecific abnormal finding of lung field; I10 Essential (primary) hypertension; I25.10 Atherosclerotic heart disease of native coronary artery without angina pectoris; E11.9 Type 2 diabetes mellitus without complications; Z79.899 Other long term (current) drug therapy
CPT/HCPCS: 78815; 82962; A9552

== ENCOUNTER 2018-03-03 09:23 | Day surgery (SDC) | payer OTHER ==
[2018-03-03 10:35] LABS: Basophils % (Auto) 0.9 % (0.0-1.8); Eosinophils # (Auto) 0.1 K/mm3 (0.0-0.4); Eosinophils % (Auto) 1.9 % (0.0-4.3); Hematocrit 38.2 % (35.5-45.6); Lymphocytes % (Auto) 40.7 % (13.4-35.0); Mean Corpuscular HGB Conc 31 % (32-34); Monocytes # (Auto) 0.4 K/mm3 (0.0-0.8); Monocytes % (Auto) 8.7 % (0.0-7.3); Platelet Count 152 K/mm3 (140-440); Red Blood Count 5.86 M/mm3 (3.65-5.03); Red Cell Distribution Width 16.1 % (13.2-15.2)
[2018-03-03 10:46] LABS: INR 0.98 (0.87-1.13); Mean Corpuscular Hemoglobin 21 pg (28-32); Mean Corpuscular Volume 65 fl (84-94)
[2018-03-03] MEDS ORDERED: SUBLIMAZE IV ONE (11:02)
[2018-03-03] MEDS ORDERED: VERSED IV ONE (11:02)
--- NOTE | 2018-03-03 15:27 | XRay Report ---
AP CHEST: HISTORY: Left lung mass, recent CT-guided biopsy of left lung Recent CT-guided biopsy of the 2 cm left lower lobe mass was performed. There is no evidence for pneumothorax. Left lower lobe mass is unchanged. The remainder of the lungs are clear. Normal heart size and pulmonary vascularity. CABG changes are noted. IMPRESSION: No evidence for pneumothorax.
--- NOTE | 2018-03-03 15:29 | Cat Scan Report ---
CT BIOPSY LUNG LEFT History: Left lower lobe mass. Description of procedure: Informed consent was obtained. Sterile technique was utilized. 1% lidocaine for skin anesthesia. Moderate sedation was accomplished with Versed and fentanyl. The patient was sedated for 15 minutes. Independent cardiorespiratory monitoring by RN. Intraobserver time of [address] guidance, a 19-gauge introducer needle was advanced to the leading edge of a 1.9 cm mass in the left lower lobe. 3 separate 2.2 cm 20-gauge core biopsies were obtained. Pathology was present and deemed the samples adequate. No complications. Impression: Successful CT-guided biopsy of the left lower lobe mass as described.
[2018-03-03 16:21] VITALS: BP 131/83
== END 2018-03-03 16:05 | disposition home or self-care (01) ==
LOC: CATHLABREC 09:23 → EDSTATUS 10:30 → CATHLABREC 16:05
PROVIDERS: ATTEND Internal Medicine Critical Care Medicine
DX: C34.32 Malignant neoplasm of lower lobe, left bronchus or lung (principal); E11.9 Type 2 diabetes mellitus without complications; K21.9 Gastro-esophageal reflux disease without esophagitis; I10 Essential (primary) hypertension; Z90.49 Acquired absence of other specified parts of digestive tract; Z98.890 Other specified postprocedural states; Z79.84 Long term (current) use of oral hypoglycemic drugs
CPT/HCPCS: 32405; 36415; 71045; 77012; 81235; 85025; 85610; 85730; 88271; 88275; 88291; 88305; 88333; 88342; 99156; J2250; J3010; 88173

== ENCOUNTER 2022-04-08 09:03 | Emergency (ER) | payer OTHER ==
--- NOTE | 2022-04-08 13:04 | Emergency Department Report ---
ED Back Pain/Injury HPI - General Chief Complaint: Back Pain/Injury Stated Complaint: BACK PAIN Time Seen by Provider: 04/08/22 12:51 Source: patient Limitations: No Limitations - History of Present Illness Initial Comments: 62-year-old male with a past medical history of hypertension, diabetes and hyperlipidemia presents to the ER today with complaints of right-sided lower thoracic/upper lumbar back pain. Patient states that his symptoms started about 2 days ago. He states that the day before he did help move a disabled patient into the back of a van and thinks that this may have been what triggered his back pain. He denies any other particular injury or strenuous activity. He states that he has been having a different kind of back pain where pain starts in his lower lumbar area and radiates down into the back of his legs. He states that has been having this intermittently for 1 month. He states that the pain in his right-sided thoracic/right upper lumbar area does not radiate but has been intermittent and seems to be worse with certain positions and movement. He denies any associated abdominal pain, chest pain, UTI symptoms, bowel or bladder incontinence, lower extremity numbness, tingling or weakness. He states that he did take ibuprofen and it did provide some relief of his pain. MD Complaint: back pain, back injury -: days(s) (2) - Related Data Home Medications Medication Instructions Recorded Confirmed Last Taken Aspirin [Adult Low Dose Aspirin EC] 81 mg PO DAILY 02/19/17 03/03/18 2 Weeks Ago ~02/17/18 AtorvaSTATin [Lipitor] 40 mg PO HS 02/19/17 03/03/18 03/02/18 Metoprolol [Lopressor] 25 mg PO BID 02/19/17 03/03/18 03/02/18 glyBURIDE [Glyburide] 5 mg PO QDAY 02/19/17 03/03/18 03/02/18 Ergocalciferol [Vitamin D2] 1 cap PO QWEEK 11/11/17 03/03/18 12/03/17 Losartan [Cozaar] 25 mg PO QDAY 11/11/17 03/03/18 03/02/18 Omeprazole 40 mg PO QDAY 11/11/17 03/03/18 03/02/18 metFORMIN XR [Glucophage XR] 500 mg PO QPM 11/11/17 03/03/18 03/02/18 Acyclovir [Zovirax Tab] 400 mg PO BID 03/03/18 03/03/18 03/02/18 Previous Rx's Medication Instructions Recorded Last Taken Type Ketorolac [Toradol] 10 mg PO Q6H PRN #20 04/08/22 Unknown Rx methOCARBAMOL [Robaxin TAB] 750 mg PO Q8H PRN #20 tab 04/08/22 Unknown Rx Allergies Allergy/AdvReac Type Severity Reaction Status Date / Time acetaminophen [From Percocet] Allergy Itching Verified 12/03/17 12:02 metoprolol Allergy Itching Verified 12/03/17 12:02 oxycodone HCl [From Percocet] Allergy Itching Verified 12/03/17 12:02 ED Review of Systems ROS: Stated complaint: BACK PAIN Other details as noted in HPI Comment: All other systems reviewed and negative Eyes: denies: eye pain, eye discharge, vision change ENT: denies: ear pain, throat pain Respiratory: denies: cough, shortness of breath, wheezing Cardiovascular: denies: chest pain, palpitations Gastrointestinal: denies: abdominal pain, nausea, diarrhea, constipation, hematemesis, melena, hematochezia Genitourinary: denies: urgency, dysuria, frequency, hematuria, discharge, testicular pain, testicular mass Musculoskeletal: back pain Skin: denies: rash, lesions Neurological: denies: headache, weakness, numbness, paresthesias, confusion, abnormal gait, vertigo Psychiatric: denies: anxiety, depression, auditory hallucinations, visual hallucinations, homicidal thoughts, suicidal thoughts Hematological/Lymphatic: denies: easy bleeding, easy bruising, swollen glands ED Past Medical Hx - Past Medical History Previous Medical History?: Yes Hx Hypertension: Yes (PRE) Hx Diabetes: Yes (SINCE 2007) Hx Pulmonary Embolism: No Hx Liver Disease: No Hx Renal Disease: No Hx Sickle Cell Disease: No Hx Arthritis: No Hx Seizures: No Hx Kidney Stones: No Hx Asthma: No Hx COPD: No Hx Tuberculosis: No Hx Dementia: No Hx HIV: No Additional medical history: high cholesterol - Surgical History Past Surgical History?: Yes Hx Open Heart Surgery: Yes (2011) Hx Cholecystectomy: Yes (12/2017) Hx Appendectomy: No Hx Breast Surgery: No - Social History Smoking Status: Never Smoker - Medications Home Medications: Home Medications Medication Instructions Recorded Confirmed Last Taken Type Aspirin [Adult Low Dose Aspirin EC] 81 mg PO DAILY 02/19/17 03/03/18 2 Weeks Ago History ~02/17/18 AtorvaSTATin [Lipitor] 40 mg PO HS 02/19/17 03/03/18 03/02/18 History Metoprolol [Lopressor] 25 mg PO BID 02/19/17 03/03/18 03/02/18 History glyBURIDE [Glyburide] 5 mg PO QDAY 02/19/17 03/03/18 03/02/18 History Ergocalciferol [Vitamin D2] 1 cap PO QWEEK 11/11/17 03/03/18 12/03/17 History Losartan [Cozaar] 25 mg PO QDAY 11/11/17 03/03/18 03/02/18 History Omeprazole 40 mg PO QDAY 11/11/17 03/03/18 03/02/18 History metFORMIN XR [Glucophage XR] 500 mg PO QPM 11/11/17 03/03/18 03/02/18 History Acyclovir [Zovirax Tab] 400 mg PO BID 03/03/18 03/03/18 03/02/18 History Ketorolac [Toradol] 10 mg PO Q6H PRN #20 04/08/22 Unknown Rx methOCARBAMOL [Robaxin TAB] 750 mg PO Q8H PRN #20 tab 04/08/22 Unknown Rx ED Physical Exam - General Limitations: No Limitations General appearance: alert, in no apparent distress - Respiratory Respiratory exam: Present: normal lung sounds bilaterally. Absent: respiratory distress, wheezes, rales, rhonchi - Cardiovascular Cardiovascular Exam: Present: regular rate, normal rhythm. Absent: systolic murmur, diastolic murmur, rubs, gallop - GI/Abdominal GI/Abdominal exam: Present: soft. Absent: distended, tenderness, guarding, rebound - Back Exam Back exam: Present: normal inspection, full ROM, muscle spasm - Expanded Back Exam Expanded 1 - TTP with spasms - Neurological Exam Neurological exam: Present: alert, oriented X3, CN II-XII intact, normal gait, reflexes normal. Absent: motor sensory deficit - Psychiatric Psychiatric exam: Present: normal affect, normal mood - Skin Skin exam: Present: intact ED Course Vital Signs 04/08/22 04/08/22 11:13 13:10 Temperature 98.3 F Pulse Rate 57 L 60 Respiratory 16 18 Rate Blood Pressure 139/74 138/72 [Left] O2 Sat by Pulse 98 98 Oximetry Critical care attestation.: If time is entered above; I have spent that time in minutes in the direct care of this critically ill patient, excluding procedure time. ED Disposition Clinical Impression: Back strain, Back spasm Disposition: HOME / SELF CARE / HOMELESS Is pt being admited?: No Does the pt Need Aspirin: No Condition: Stable Instructions: Muscle Cramps and Spasms, [id number], Muscle Strain, [id number] Additional Instructions: I recommend taking the medications as prescribed. You can also do heat and I recommend doing the back stretching exercises. Follow up with your PCP. Return to ED if worse. Prescriptions: methOCARBAMOL [Robaxin TAB] 750 mg PO Q8H PRN #20 tab PRN Reason: Spasms Ketorolac [Toradol] 10 mg PO Q6H PRN #20 PRN Reason: Pain Referrals: PRIMARY CARE, [Primary Care Provider] - 3-5 Days Forms: Work/School Release Form(ED) Time of Disposition: 13:04
[2022-04-08 13:11] VITALS: BP 138/72
== END 2022-04-08 13:10 | disposition home or self-care (01) ==
LOC: ED 09:03
DX: S39.012A Strain of muscle, fascia and tendon of lower back, initial encounter (principal); M62.830 Muscle spasm of back; I10 Essential (primary) hypertension; E11.9 Type 2 diabetes mellitus without complications; Z90.49 Acquired absence of other specified parts of digestive tract; Z98.890 Other specified postprocedural states; Z88.6 Allergy status to analgesic agent; Z88.1 Allergy status to other antibiotic agents; Z91.09 Other allergy status, other than to drugs and biological substances; Z79.899 Other long term (current) drug therapy; X58.XXXA Exposure to other specified factors, initial encounter; Y93.89 Activity, other specified; Y92.89 Other specified places as the place of occurrence of the external cause; Y99.8 Other external cause status
CPT/HCPCS: 99282